=== PATIENT | female | born 1955 | race Caucasian/White ===

== ENCOUNTER 2017-10-04 22:43 | Inpatient (IN) | payer MEDICARE, BC ==
[~2017-10-04] VITALS: Ht 172.7 cm; Wt 52.2 kg
[~2017-10-04 22:43] MED LIST: FENT-93 TD; GABA-330 PO; HYDR2TAB28 PO; METO-410 PO; PROM25SU46 RC; VENL-190 PO; ZOF4T PO
[2017-10-05 00:30] VITALS: BP 120/76
[2017-10-05 07:39] VITALS: BP 153/89
[2017-10-05] MEDS ORDERED: magnesium hydroxide 30ml (MOM) UD suspension PO PRN (09:05)
[2017-10-05] MEDS ORDERED: acetaminophen 325mg tablet PO PRN ×2 (09:05)
[2017-10-05] MEDS ORDERED: mag hydrox/Alum hydrox/simeth 30ml oral suspension PO PRN (09:05)
[2017-10-05] MEDS ORDERED: ESCI10TA54 PO (12:38)
[2017-10-05] MEDS ORDERED: BACL10TA PO (12:39)
[2017-10-05] MEDS ORDERED: ESZO2TAB30 PO (12:42)
[2017-10-05] MEDS ORDERED: FERR225T PO (12:44)
[2017-10-05] MEDS ORDERED: FURO-150 PO (12:46)
[2017-10-05] MEDS ORDERED: NORT25CA PO (13:09)
[2017-10-05] MEDS ORDERED: TRAM50TA2 PO (13:09)
[2017-10-05] MEDS ORDERED: ALBU8.5H8 IH (13:09)
[2017-10-05] MEDS ORDERED: LORA0.5T PO (13:09)
[2017-10-05] MEDS ORDERED: KEN0.1O TP (13:09)
[2017-10-05] MEDS ORDERED: GABA-534 PO (13:09)
[2017-10-05] MEDS ORDERED: albuterol 2.5 MG/3 ML nebule NEB PRN (13:20)
[2017-10-05] MEDS ORDERED: baclofen 10mg tablet PO PRN (13:20)
[2017-10-05] MEDS ORDERED: LORazepam 0.5 MG tablet PO PRN (13:25)
[2017-10-05] MEDS: nicotine 14mg patch - 24hr TD SCH (15:37)
[2017-10-05] MEDS: HYDROmorphone 2mg tablet PO PRN ×2 (15:43→21:11)
[2017-10-05] MEDS ORDERED: traMADol 50MG tablet PO SCH (17:00)
[2017-10-05] MEDS: gabapentin 400mg capsule PO SCH ×2 (17:56→21:07)
[2017-10-05] MEDS: triamcinolone acet 0.1% cream 15gm TP SCH (20:00)
[2017-10-05 20:26] VITALS: BP 157/83
[2017-10-05] MEDS ORDERED: nortriptyline 25mg capsule PO SCH (21:00)
[2017-10-05] MEDS: nortriptyline 25mg capsule PO SCH (21:07)
[2017-10-06] MEDS: HYDROmorphone 2mg tablet PO PRN ×2 (04:25→14:25)
[2017-10-06 07:53] VITALS: BP 169/99
[2017-10-06] MEDS ORDERED: ferrous gluconate 324mg tablet PO SCH (08:00)
[2017-10-06] MEDS ORDERED: ESCITALOPRAM 10MG PO SCH (08:00)
[2017-10-06] MEDS: furosemide 20MG tablet PO SCH (08:07)
[2017-10-06] MEDS: gabapentin 400mg capsule PO SCH ×4 (08:07→20:18)
[2017-10-06] MEDS: fluticasone nasal spray 16GM bottle NS SCH (08:08)
[2017-10-06] MEDS: nicotine 14mg patch - 24hr TD SCH (08:08)
[2017-10-06] MEDS: triamcinolone acet 0.1% cream 15gm TP SCH ×2 (14:25→20:18)
[2017-10-06] MEDS ORDERED: citalopram 20mg tablet PO ONE (14:25)
[2017-10-06] MEDS: traMADol 50MG tablet PO SCH ×2 (15:51→20:19)
[2017-10-06 19:00] VITALS: BP 185/111
[2017-10-06 19:30] VITALS: BP 170/109
[2017-10-06] MEDS: nortriptyline 25mg capsule PO SCH (20:18)
[2017-10-06 21:00] VITALS: BP 176/96
[2017-10-07] MEDS: HYDROmorphone 2mg tablet PO PRN (02:21)
[2017-10-07 07:56] VITALS: BP 166/102
[2017-10-07] MEDS: ferrous gluconate 324mg tablet PO SCH ×2 (08:00→08:03)
[2017-10-07] MEDS ORDERED: citalopram 20mg tablet PO SCH (08:00)
[2017-10-07] MEDS: nicotine 14mg patch - 24hr TD SCH (08:02)
[2017-10-07] MEDS: fluticasone nasal spray 16GM bottle NS SCH (08:03)
[2017-10-07] MEDS: traMADol 50MG tablet PO SCH ×2 (08:03→13:14)
[2017-10-07] MEDS: furosemide 20MG tablet PO SCH (08:03)
[2017-10-07] MEDS: gabapentin 400mg capsule PO SCH ×2 (08:03→13:13)
[2017-10-07] MEDS: triamcinolone acet 0.1% cream 15gm TP SCH (11:00)
[2017-10-07] MEDS ORDERED: HYDR2TAB7 PO (11:49)
[2017-10-07] MEDS ORDERED: NORT25CA PO (11:49)
[2017-10-07] MEDS ORDERED: CITA20TA11 PO (11:49)
[2017-10-07] MEDS ORDERED: FLUT16SP18 NS (11:49)
[2017-10-07] MEDS ORDERED: NICO-631 TD (11:49)
== END 2017-10-07 13:45 | disposition home or self-care (01) | DRG 885 ==
LOC: ADULT MH 22:43
PROVIDERS: ADMIT Psychiatry & Neurology Psychiatry; ATTEND Psychiatry & Neurology Psychiatry
DX: F33.1 Major depressive disorder, recurrent, moderate (principal); L89.150 Pressure ulcer of sacral region, unstageable; F11.20 Opioid dependence, uncomplicated; G62.9 Polyneuropathy, unspecified; F29 Unspecified psychosis not due to a substance or known physiological condition; M54.9 Dorsalgia, unspecified; F41.9 Anxiety disorder, unspecified; F12.90 Cannabis use, unspecified, uncomplicated; G47.09 Other insomnia; G89.4 Chronic pain syndrome; J00 Acute nasopharyngitis [common cold]; J44.9 Chronic obstructive pulmonary disease, unspecified; T40.60 Poisoning by, adverse effect of and underdosing of unspecified narcotics; F17.210 Nicotine dependence, cigarettes, uncomplicated; Z90.710 Acquired absence of both cervix and uterus; Z90.49 Acquired absence of other specified parts of digestive tract; Z98.84 Bariatric surgery status; Z88.5 Allergy status to narcotic agent; Z79.899 Other long term (current) drug therapy; Z91.5 Personal history of self-harm; Z81.1 Family history of alcohol abuse and dependence
CPT/HCPCS: 87070; 99406; A6212; A6213

== ENCOUNTER 2018-11-24 12:13 | Inpatient (IN) | payer MEDICARE, BC ==
[~2018-11-24] VITALS: Ht 172.7 cm; Wt 63.6 kg
[~2018-11-24 12:13] MED LIST changes: +ALBU8.5H8 IH; +BACL10TA PO; +CITA-278 PO; -FENT-93 TD; +FERR225T PO; +FLUT16SP18 NS; +FURO-150 PO; -GABA-330 PO; +GABA-534 PO; -HYDR2TAB28 PO; +HYDR2TAB7 PO; +KEN0.1O TP; -METO-410 PO; +NICO-631 TD; +NORT25CA PO; -PROM25SU46 RC; -VENL-190 PO; -ZOF4T PO
[2018-11-24 13:15] LABS: BASOPHILS % (AUTO) 0.2 % (0-1); EOSINOPHILS % (AUTO) 0 % (0-6); HEMATOCRIT 46.8 % (35.0-45.0); HEMOGLOBIN 15.3 g/dl (12.0-16.0); LYMPHOCYTES # (AUTO) 0.9 X10'3 (1.1-4.8); LYMPHOCYTES % (AUTO) 4.6 % (21-51); MEAN CORPUSCULAR HEMOGLOBIN 35.1 PG (27.0-31.0); MEAN CORPUSCULAR HGB CONC 32.8 g/dL (33.0-36.5); MEAN CORPUSCULAR VOLUME 107.1 FL (78-98); MEAN PLATELET VOLUME 8.4 FL (7.4-10.4); MONOCYTES # (AUTO) 0.5 X10'3 (0-0.9); MONOCYTES % (AUTO) 2.4 % (2-12); NEUTROPHILS % (AUTO) 92.8 % (42-75); PLATELET COUNT 312 X10'3 (140-440); RED BLOOD COUNT 4.37 X10'6 (4.20-5.60); RED CELL DISTRIBUTION WIDTH 15.6 % (11.5-14.5); WHITE BLOOD COUNT 19.4 X10'3 (4.5-11.0)
[2018-11-24 13:17] LABS: ALANINE AMINOTRANSFERASE 69 U/L (12-78); ALBUMIN 2.6 G/DL (3.4-5.0); ALBUMIN/GLOBULIN RATIO 0.7 (1.1-1.5); ALKALINE PHOSPHATASE 331 IU/L (46-116); ANION GAP 9 (8-16); ASPARTATE AMINO TRANSFERASE 43 U/L (10-37); BILIRUBIN,TOTAL 1.4 MG/DL (0.1-1.0); BLOOD UREA NITROGEN 22 MG/DL (7-18); BUN/CREATININE RATIO 25.9 (6.6-38.0); CALCIUM 7.9 MG/DL (8.5-10.1); CHLORIDE 93 MMOL/L (99-107); CREATININE 0.85 MG/DL (0.40-0.90); GLUCOSE 129 MG/DL (70-104); INR 1.2 INR; PARTIAL THROMBOPLASTIN TIME 30 SECONDS (22-32); PROTHROMBIN TIME 11.8 SECONDS (9.0-12.0); SODIUM 135 MMOL/L (135-145); TOTAL CARBON DIOXIDE 32.8 MMOL/L (24-32); TOTAL PROTEIN 6.6 G/DL (6.4-8.2); eGFR 68 ML/MIN
[2018-11-24 13:21] LABS: POTASSIUM 2.1 MMOL/L (3.5-5.1)
[2018-11-24 13:30] LABS: TOTAL CELLS COUNTED 100
[2018-11-24 13:31] LABS: ANISOCYTOSIS 1+; PLATELET ESTIMATE NORMAL; POIKILOCYTOSIS 1+; POLYCHROMASIA 1+; TARGET CELLS 1+
[2018-11-24] MEDS ORDERED: potassium Cl 20 mEq SR tablet PO ONE (14:05)
[2018-11-24] MEDS: potassium 10mEq/100ml NS w/LIDOcaine (10mg/bag) IV SCH ×2 (14:13→17:19)
[2018-11-24] MEDS: magnesium 2GM in 50ml NS 50 ML IV SCH ×2 (14:17→17:21)
[2018-11-24 14:30] LABS: D-DIMER 4.02 MG/L FEU (0-0.50)
[2018-11-24 14:32] LABS: MAGNESIUM 1.9 MG/DL (1.5-2.4)
--- NOTE | 2018-11-24 14:56 | NUR ---
PT HAS SOME LT SIDED FACIAL DROOP, DR PLAZA NOTIFIED. LEVEL 1 STROKE ALERT CALLED.
--- NOTE | 2018-11-24 15:12 | NUR ---
Call placed to [facility] for neuro consult
--- NOTE | 2018-11-24 15:16 | NUR ---
PT RETURNED FROM CT, STROKE NURSE AT BEDSIDE,.
[2018-11-24] MEDS ORDERED: levoFLOXACIN-Levaquin 750MG/D5 150 ML IV STA (15:28)
[2018-11-24] MEDS ORDERED: iohexol 350MG/ML 100ml bottle IV ONE (15:54)
[2018-11-24] MEDS ORDERED: enoxaparin 100mg/ml syringe SUBCUT ONE (16:50)
[2018-11-24] MEDS ORDERED: enoxaparin 60mg/0.6ml syringe SUBCUT ONE (16:55)
[2018-11-24] MEDS ORDERED: potassium 10mEq/100ml NS w/LIDOcaine (10mg/bag) IV SCH (17:20)
[2018-11-24] MEDS ORDERED: magnesium 4gm in 100ml NS 100 ML IV PRN (18:10)
[2018-11-24] MEDS ORDERED: magnesium hydroxide 30ml (MOM) UD suspension PO PRN (18:10)
[2018-11-24] MEDS ORDERED: ipratropium/albuterol 3ml nebule NEB PRN (18:10)
[2018-11-24] MEDS ORDERED: ondansetron/PF 4mg/2ml inj IV PRN (18:10)
[2018-11-24] MEDS ORDERED: acetaminophen 325mg tablet PO PRN (18:10)
[2018-11-24] MEDS ORDERED: potassium Cl 20 mEq SR tablet PO PRN (18:10)
[2018-11-24] MEDS ORDERED: mag hydrox/Alum hydrox/simeth 30ml oral suspension PO PRN (18:10)
[2018-11-24] MEDS ORDERED: magnesium Cl slow-release 64mg tablet PO PRN (18:10)
[2018-11-24] MEDS ORDERED: magnesium 2GM in 50ml NS 50 ML IV PRN (18:10)
[2018-11-24] MEDS ORDERED: potassium Cl 40MEQ/NS 500ml 500 ML IV PRN ×2 (18:10)
[2018-11-24] MEDS: enoxaparin 60mg/0.6ml syringe SUBCUT SCH (19:57)
--- NOTE | 2018-11-24 21:40 | NUR ---
Received report from Colin TEJADA. Patient received via [place]. Patient helped ambulate to bed with 2 person assistance. Vital signs taken. Bed in locked and low position, call light placed within reach.
[2018-11-24 21:43] LABS: CLARITY,URINE CLEAR (Clear); COLOR,URINE YELLOW (Yellow); GLUCOSE, URINE NEGATIVE (Neg); KETONES,URINE TRACE mg/dl (Neg); LEUKOCYTE ESTERASE ,URINE NEGATIVE (Neg); NITRITES, URINE NEGATIVE (Neg); OCCULT BLOOD,URINE NEGATIVE (Neg); PROTEIN,URINE NEGATIVE (Neg); UA COLLECTION TYPE STRAIGHT CATH
[2018-11-24 21:45] VITALS: BP 146/83
[2018-11-25] MEDS ORDERED: HYDROmorphone 2mg tablet PO ONE (05:30)
[2018-11-25 06:00] VITALS: BP 135/75
--- NOTE | 2018-11-25 06:35 | NUR ---
Problems reprioritized. Patient report given, questions answered & plan of care reviewed with Yane TEJADA.
--- NOTE | 2018-11-25 06:40 | NUR ---
Patient in room ORTHO 4024. I have received report from [facility] and had the opportunity to ask questions and assume patient care.
[2018-11-25 06:58] LABS: BASOPHILS % (AUTO) 0 % (0-1); EOSINOPHILS # (AUTO) 0.2 X10'3 (0-0.9); EOSINOPHILS % (AUTO) 1.3 % (0-6); HEMATOCRIT 36.1 % (35.0-45.0); HEMOGLOBIN 11.9 g/dl (12.0-16.0); LYMPHOCYTES # (AUTO) 0.9 X10'3 (1.1-4.8); LYMPHOCYTES % (AUTO) 6.4 % (21-51); MEAN CORPUSCULAR HEMOGLOBIN 35.6 PG (27.0-31.0); MEAN CORPUSCULAR VOLUME 107.8 FL (78-98); MEAN PLATELET VOLUME 8.2 FL (7.4-10.4); MONOCYTES # (AUTO) 0.6 X10'3 (0-0.9); NEUTROPHILS # (AUTO) 12.7 X10'3 (1.8-7.7); NEUTROPHILS % (AUTO) 88.3 % (42-75); PLATELET COUNT 264 X10'3 (140-440); RED BLOOD COUNT 3.35 X10'6 (4.20-5.60); RED CELL DISTRIBUTION WIDTH 15.1 % (11.5-14.5); WHITE BLOOD COUNT 14.4 X10'3 (4.5-11.0)
[2018-11-25 07:39] LABS: ALANINE AMINOTRANSFERASE 48 U/L (12-78); ALBUMIN 1.7 G/DL (3.4-5.0); ALBUMIN/GLOBULIN RATIO 0.6 (1.1-1.5); ALKALINE PHOSPHATASE 228 IU/L (46-116); ANION GAP 7 (8-16); ASPARTATE AMINO TRANSFERASE 28 U/L (10-37); BILIRUBIN,TOTAL 0.9 MG/DL (0.1-1.0); BLOOD UREA NITROGEN 15 MG/DL (7-18); BUN/CREATININE RATIO 26.3 (6.6-38.0); CALCIUM 7.1 MG/DL (8.5-10.1); CHLORIDE 95 MMOL/L (99-107); CREATININE 0.57 MG/DL (0.40-0.90); GLUCOSE 76 MG/DL (70-104); HDL CHOLESTEROL 18 MG/DL (35-60); LDL CHOLESTEROL 16 MG/DL (50-100); SODIUM 134 MMOL/L (135-145); TOTAL CARBON DIOXIDE 32.4 MMOL/L (24-32); TOTAL PROTEIN 4.6 G/DL (6.4-8.2); TRIGLYCERIDES 38 MG/DL (20-135); eGFR > 90 ML/MIN
[2018-11-25 07:41] LABS: CHOLESTEROL < 50 MG/DL (0-200)
[2018-11-25 07:43] LABS: POTASSIUM 2.2 MMOL/L (3.5-5.1)
[2018-11-25] MEDS: K and/or MAG REPLACEMENT MC SCH (08:00)
--- NOTE | 2018-11-25 08:01 | NUR ---
Received critical lab for pt. Potassium of 2.2. Kelly LYLES. PAGER ID: [phone] MESSAGE: Good morning Yane Powell on ortho, critical potassium of 2.2 on pt in room 4024A, Ms. Thomas. Replacing per protocol. Thank you
[2018-11-25] MEDS: potassium Cl 20 mEq SR tablet PO PRN ×3 (09:14→19:15)
[2018-11-25] MEDS: enoxaparin 60mg/0.6ml syringe SUBCUT SCH ×2 (09:15→19:16)
[2018-11-25 10:00] VITALS: BP 122/74
[2018-11-25] MEDS: levoFLOXACIN 750MG TABLET PO SCH (11:57)
[2018-11-25] MEDS: CITALOpram 10mg tablet PO SCH (11:58)
[2018-11-25] MEDS: baclofen 10mg tablet PO PRN ×2 (13:48→22:00)
[2018-11-25] MEDS: nicotine 14mg patch - 24hr TD SCH (13:49)
--- NOTE | 2018-11-25 15:25 | NUR ---
Pt triggered for low sherry of 12. Pt has documented pressure ulcer on left buttocks and posterior coccyx. Met pt at bedside gave verbal and written high protein education. Pt is w/ severe edema, BLE 4+, visible muscle and fat wasting. Pt states she is normally 125-130# and is currently 140#. Per note MD is concerned that the patient may have a metastatic process due to her cachectic appearance.Due to cachectic appearance and edema pt meets criteria for malnutrition. Pt is on clear liquid diet and states previously w/ loss of appetite however she is hungry, currently no documented PO intake. Pt is agreeable to ONS if needed. LBM 11/23. Will continue to follow. Rec: 1. Advance diet as tolerated 2. Monitor for ONS 3. Wt per rx Addendum: 11/25/18 at [address] Amended: Links added. Addendum: 11/25/18 at [address] I have reviewed and agree with note by [employer]. Alexia Rodriguez, DARIUSZ
[2018-11-25 18:00] VITALS: BP 115/63
--- NOTE | 2018-11-25 18:19 | NUR ---
Problems reprioritized. Patient report given, questions answered & plan of care reviewed with Eulalia Anne
[2018-11-25] MEDS: gabapentin 400mg capsule PO SCH (19:15)
[2018-11-25 22:00] VITALS: BP 115/69
[2018-11-26] MEDS: gabapentin 400mg capsule PO SCH ×4 (02:31→19:15)
[2018-11-26 06:00] VITALS: BP 119/78
--- NOTE | 2018-11-26 06:27 | NUR ---
Problems reprioritized. Patient report given, questions answered & plan of care reviewed with TERRELL Last.
--- NOTE | 2018-11-26 06:33 | NUR ---
RECEIVED REPORT FROM LIOR Johnson
[2018-11-26 06:40] LABS: BASOPHILS % (AUTO) 0 % (0-1); EOSINOPHILS # (AUTO) 0.1 X10'3 (0-0.9); EOSINOPHILS % (AUTO) 1.2 % (0-6); HEMATOCRIT 38.5 % (35.0-45.0); HEMOGLOBIN 12.7 g/dl (12.0-16.0); LYMPHOCYTES # (AUTO) 1.2 X10'3 (1.1-4.8); MEAN CORPUSCULAR HEMOGLOBIN 35.3 PG (27.0-31.0); MEAN CORPUSCULAR HGB CONC 32.9 g/dL (33.0-36.5); MEAN CORPUSCULAR VOLUME 107.3 FL (78-98); MEAN PLATELET VOLUME 8.4 FL (7.4-10.4); MONOCYTES # (AUTO) 0.4 X10'3 (0-0.9); MONOCYTES % (AUTO) 3.2 % (2-12); NEUTROPHILS # (AUTO) 10.3 X10'3 (1.8-7.7); NEUTROPHILS % (AUTO) 85.6 % (42-75); PLATELET COUNT 314 X10'3 (140-440); RED BLOOD COUNT 3.58 X10'6 (4.20-5.60); RED CELL DISTRIBUTION WIDTH 15.6 % (11.5-14.5)
[2018-11-26 06:47] LABS: ALBUMIN 1.8 G/DL (3.4-5.0); ANION GAP 9 (8-16); BLOOD UREA NITROGEN 12 MG/DL (7-18); BUN/CREATININE RATIO 21.4 (6.6-38.0); CALCIUM 7.2 MG/DL (8.5-10.1); CHLORIDE 96 MMOL/L (99-107); CREATININE 0.56 MG/DL (0.40-0.90); GLUCOSE 61 MG/DL (70-104); POTASSIUM 3.6 MMOL/L (3.5-5.1); SODIUM 132 MMOL/L (135-145); TOTAL CARBON DIOXIDE 27.4 MMOL/L (24-32); eGFR > 90 ML/MIN
[2018-11-26] MEDS: baclofen 10mg tablet PO PRN ×2 (07:38→17:19)
[2018-11-26] MEDS: CITALOpram 10mg tablet PO SCH (07:38)
[2018-11-26] MEDS: enoxaparin 60mg/0.6ml syringe SUBCUT SCH ×2 (07:39→19:16)
[2018-11-26] MEDS: nicotine 14mg patch - 24hr TD SCH (07:39)
[2018-11-26] MEDS: K and/or MAG REPLACEMENT MC SCH (08:00)
[2018-11-26 10:00] VITALS: BP 143/80
[2018-11-26] MEDS ORDERED: HYDROmorphone 2mg tablet PO PRN ×2 (10:15→19:00)
[2018-11-26] MEDS: levoFLOXACIN 750MG TABLET PO SCH (10:39)
[2018-11-26] MEDS: HYDROmorphone 2mg tablet PO SCH ×2 (13:36→19:16)
[2018-11-26] MEDS ORDERED: baclofen 10mg tablet PO PRN (17:00)
[2018-11-26] MEDS ORDERED: gabapentin 400mg capsule PO SCH (17:00)
[2018-11-26 18:00] VITALS: BP 152/100
--- NOTE | 2018-11-26 18:12 | NUR ---
REPORT GIVEN TO KIMBERLY TEJADA
[2018-11-26] MEDS ORDERED: albuterol 2.5 MG/3 ML nebule NEB PRN (18:45)
[2018-11-26] MEDS: nortriptyline 25mg capsule PO SCH (20:12)
[2018-11-26] MEDS: triamcinolone acet 0.1% cream 15gm TP SCH (20:12)
[2018-11-26 22:00] VITALS: BP 134/82
[2018-11-27] MEDS: gabapentin 400mg capsule PO SCH ×4 (01:38→19:33)
[2018-11-27 05:42] LABS: BASOPHILS % (AUTO) 0.3 % (0-1); EOSINOPHILS % (AUTO) 0 % (0-6); HEMOGLOBIN 12.5 g/dl (12.0-16.0); LYMPHOCYTES # (AUTO) 1.9 X10'3 (1.1-4.8); LYMPHOCYTES % (AUTO) 17.8 % (21-51); MEAN CORPUSCULAR HEMOGLOBIN 35.4 PG (27.0-31.0); MEAN CORPUSCULAR HGB CONC 32.8 g/dL (33.0-36.5); MEAN CORPUSCULAR VOLUME 107.8 FL (78-98); MEAN PLATELET VOLUME 8.4 FL (7.4-10.4); MONOCYTES # (AUTO) 0.4 X10'3 (0-0.9); MONOCYTES % (AUTO) 3.7 % (2-12); NEUTROPHILS # (AUTO) 8.2 X10'3 (1.8-7.7); NEUTROPHILS % (AUTO) 78.2 % (42-75); PLATELET COUNT 309 X10'3 (140-440); RED BLOOD COUNT 3.53 X10'6 (4.20-5.60); RED CELL DISTRIBUTION WIDTH 15.6 % (11.5-14.5); WHITE BLOOD COUNT 10.5 X10'3 (4.5-11.0)
[2018-11-27 06:00] LABS: ALBUMIN 1.8 G/DL (3.4-5.0); ANION GAP 5 (8-16); BLOOD UREA NITROGEN 9 MG/DL (7-18); BUN/CREATININE RATIO 16.1 (6.6-38.0); CALCIUM 7.3 MG/DL (8.5-10.1); CHLORIDE 98 MMOL/L (99-107); CREATININE 0.56 MG/DL (0.40-0.90); GLUCOSE 73 MG/DL (70-104); POTASSIUM 3.4 MMOL/L (3.5-5.1); SODIUM 132 MMOL/L (135-145); TOTAL CARBON DIOXIDE 29.4 MMOL/L (24-32); eGFR > 90 ML/MIN
--- NOTE | 2018-11-27 06:26 | NUR ---
REPORT GIVEN TO TERRELL WATTS.
--- NOTE | 2018-11-27 06:38 | NUR ---
RECEIVED REPORT FROM KIMBERLY TEJADA
[2018-11-27 06:49] VITALS: BP 128/77
[2018-11-27] MEDS: furosemide 20MG tablet PO SCH (07:48)
[2018-11-27] MEDS: lactobacillus rhamnosus 10,000 MMU CELLS/CAPSULE PO SCH ×2 (07:48→19:33)
[2018-11-27] MEDS: HYDROmorphone 2mg tablet PO SCH ×3 (07:49→19:33)
[2018-11-27] MEDS: CITALOpram 10mg tablet PO SCH (07:49)
[2018-11-27] MEDS: nicotine 14mg patch - 24hr TD SCH (07:49)
[2018-11-27] MEDS: enoxaparin 60mg/0.6ml syringe SUBCUT SCH ×2 (07:50→19:34)
[2018-11-27] MEDS: triamcinolone acet 0.1% cream 15gm TP SCH ×2 (07:54→19:34)
[2018-11-27] MEDS: fluticasone nasal spray 16GM bottle NS SCH (07:54)
[2018-11-27] MEDS: ferrous gluconate 324mg tablet PO SCH (07:55)
[2018-11-27] MEDS ORDERED: nicotine 14mg patch - 24hr TD SCH (08:00)
[2018-11-27] MEDS: K and/or MAG REPLACEMENT MC SCH (08:00)
[2018-11-27] MEDS ORDERED: citalopram 20mg tablet PO SCH (08:00)
[2018-11-27 10:00] VITALS: BP 134/82
[2018-11-27] MEDS: levoFLOXACIN 750MG TABLET PO SCH (10:13)
[2018-11-27] MEDS: baclofen 10mg tablet PO PRN (10:13)
[2018-11-27 17:00] VITALS: BP 124/82
[2018-11-27] MEDS ORDERED: HYDROmorphone 2mg tablet PO SCH (19:00)
[2018-11-27] MEDS ORDERED: magnesium Cl slow-release 64mg tablet PO PRN (19:35)
[2018-11-27] MEDS ORDERED: magnesium 4gm in 100ml NS 100 ML IV PRN (19:35)
[2018-11-27] MEDS ORDERED: potassium Cl 20 mEq SR tablet PO PRN ×2 (19:35)
[2018-11-27] MEDS ORDERED: potassium Cl 40MEQ/NS 500ml 500 ML IV PRN ×2 (19:35)
[2018-11-27] MEDS: nortriptyline 25mg capsule PO SCH (20:37)
--- NOTE | 2018-11-27 20:46 | NUR ---
REPORT REC'D FROM TERRELL WATTS.
[2018-11-27 22:00] VITALS: BP 125/78
[2018-11-28] MEDS: gabapentin 400mg capsule PO SCH ×2 (02:06→07:43)
[2018-11-28 06:31] LABS: BASOPHILS % (AUTO) 0.3 % (0-1); EOSINOPHILS # (AUTO) 0.1 X10'3 (0-0.9); EOSINOPHILS % (AUTO) 1.4 % (0-6); HEMATOCRIT 39.1 % (35.0-45.0); LYMPHOCYTES # (AUTO) 1.6 X10'3 (1.1-4.8); LYMPHOCYTES % (AUTO) 21.5 % (21-51); MEAN CORPUSCULAR HEMOGLOBIN 35.9 PG (27.0-31.0); MEAN CORPUSCULAR HGB CONC 33.2 g/dL (33.0-36.5); MEAN CORPUSCULAR VOLUME 108.1 FL (78-98); MEAN PLATELET VOLUME 8.1 FL (7.4-10.4); MONOCYTES # (AUTO) 0.4 X10'3 (0-0.9); MONOCYTES % (AUTO) 4.6 % (2-12); NEUTROPHILS # (AUTO) 5.5 X10'3 (1.8-7.7); NEUTROPHILS % (AUTO) 72.2 % (42-75); PLATELET COUNT 296 X10'3 (140-440); RED BLOOD COUNT 3.62 X10'6 (4.20-5.60); RED CELL DISTRIBUTION WIDTH 15.9 % (11.5-14.5); WHITE BLOOD COUNT 7.7 X10'3 (4.5-11.0)
--- NOTE | 2018-11-28 06:39 | NUR ---
REPORT GIVEN TO TERRELL WATTS.
[2018-11-28 06:44] LABS: ALBUMIN 1.7 G/DL (3.4-5.0); ANION GAP 6 (8-16); BLOOD UREA NITROGEN 8 MG/DL (7-18); BUN/CREATININE RATIO 11.8 (6.6-38.0); CALCIUM 7.4 MG/DL (8.5-10.1); CHLORIDE 99 MMOL/L (99-107); CREATININE 0.68 MG/DL (0.40-0.90); GLUCOSE 74 MG/DL (70-104); MAGNESIUM 1.8 MG/DL (1.5-2.4); POTASSIUM 3.9 MMOL/L (3.5-5.1); SODIUM 135 MMOL/L (135-145); TOTAL CARBON DIOXIDE 30.4 MMOL/L (24-32); eGFR 88 ML/MIN
--- NOTE | 2018-11-28 06:45 | NUR ---
RECEIVED REPORT FROM KIMBERLY TEJADA
[2018-11-28 06:56] VITALS: BP 116/79
[2018-11-28] MEDS: fluticasone nasal spray 16GM bottle NS SCH (07:36)
[2018-11-28] MEDS: lactobacillus rhamnosus 10,000 MMU CELLS/CAPSULE PO SCH (07:42)
[2018-11-28] MEDS: ferrous gluconate 324mg tablet PO SCH (07:42)
[2018-11-28] MEDS: HYDROmorphone 2mg tablet PO SCH ×2 (07:43→12:27)
[2018-11-28] MEDS: CITALOpram 10mg tablet PO SCH (07:43)
[2018-11-28] MEDS: nicotine 14mg patch - 24hr TD SCH (07:43)
[2018-11-28] MEDS: furosemide 20MG tablet PO SCH (07:43)
[2018-11-28] MEDS: enoxaparin 60mg/0.6ml syringe SUBCUT SCH (07:44)
[2018-11-28] MEDS: triamcinolone acet 0.1% cream 15gm TP SCH (07:46)
[2018-11-28] MEDS: K and/or MAG REPLACEMENT MC SCH (08:00)
[2018-11-28] MEDS: lactose-reduced food (Ensure High Protein) 237ml bottle PO SCH ×2 (08:56→13:42)
[2018-11-28 11:28] VITALS: BP 117/77
[2018-11-28] MEDS: levoFLOXACIN 750MG TABLET PO SCH (12:27)
--- NOTE | 2018-11-28 12:29 | NUR ---
reassessment: Pt PO 50-75% heart healthy meals w/ ensure high protein TID meeting needs. Pt seen by RD and requests larger portions w/ meals; agrees to double meats TIDWM. DARIUSZ d/w dietary. Pt reports knowing of only one kind of gastric bypass winterg DARIUSZ visit and reports they "shrunk her stomach" ~20 years ago. Possibly vertical sleeve instead of lia-en-y given pt tolerating concentrated juices and requesting additional food. MCV 108.1; pt reports stopped taking B12 and just takes OTC MVM at home. RD educated pt on taking B12 in addition to MVM for additional needs; pt was agreeable. May need injections in order to meet needs depending on extent of bypass. DARIUSZ d/w RN for routine bowel care and B12/MVM per MD approval given LBM 11/23 on Fergon and MCV quite elevated. Pt reports no discomfort and is aware of no BM past few days. Will continue to monitor. Rec: 1. continue heart healthy diet per MD; double meats TIDWM 2. ensure high protein TIDWM 3. B12/MVM given gastric bypass hx w/ MCV elevated 108.1 per MD; may need B12 injection depending on hx 4. Routine bowel care on Fergon w/ LBM 11/23 5. weekly wts Addendum: 11/28/18 at [address] Amended: Links added.
--- NOTE | 2018-11-28 16:24 | NUR ---
Patient was discharged Iv and tele was removed. Patient was alert and oriented at time of discharge. Patient left via [facility]
== END 2018-11-28 16:15 | DRG 175 ==
LOC: ER 12:14 → ED HOLD 19:22 → ORTHO 4S 21:35
PROVIDERS: ADMIT Family Medicine; ATTEND Family Medicine
PROC: B3201ZZ Computerized Tomography (CT Scan) of Thoracic Aorta using Low Osmolar Contrast (ICD-10-PCS; principal; 2018-11-24)
DX: I26.99 Other pulmonary embolism without acute cor pulmonale (principal); R65.11 Systemic inflammatory response syndrome (SIRS) of non-infectious origin with acute organ dysfunction; E43 Unspecified severe protein-calorie malnutrition; J18.1 Lobar pneumonia, unspecified organism; I82.403 Acute embolism and thrombosis of unspecified deep veins of lower extremity, bilateral; J44.0 Chronic obstructive pulmonary disease with (acute) lower respiratory infection; E87.6 Hypokalemia; F32.9 Major depressive disorder, single episode, unspecified; M54.2 Cervicalgia; L89.152 Pressure ulcer of sacral region, stage 2; M54.9 Dorsalgia, unspecified; R25.1 Tremor, unspecified; G47.00 Insomnia, unspecified; G62.9 Polyneuropathy, unspecified; G89.4 Chronic pain syndrome; M41.9 Scoliosis, unspecified; F12.90 Cannabis use, unspecified, uncomplicated; F17.210 Nicotine dependence, cigarettes, uncomplicated; Z74.01 Bed confinement status; Z90.710 Acquired absence of both cervix and uterus; Z90.49 Acquired absence of other specified parts of digestive tract; Z98.84 Bariatric surgery status; Z88.5 Allergy status to narcotic agent; Z79.899 Other long term (current) drug therapy; Z79.01 Long term (current) use of anticoagulants; Z81.1 Family history of alcohol abuse and dependence; Z68.21 Body mass index [BMI] 21.0-21.9, adult; Z71.6 Tobacco abuse counseling
CPT/HCPCS: 36415; 71045; 71275; 74176; 80048; 80053; 80061; 81003; 83605; 83735; 83880; 84132; 84145; 84484; 85025; 85379; 85610; 85730; 87040; 87070; 93306; 93970; 94760; 96361; 96365; 96372; 97110; 97116; 97162; 97530; 99285; G0378; J1650; J1956; J3475; J3480; Q9967

== ENCOUNTER 2019-10-10 14:41 | Emergency (ER) | payer MEDICARE, BC ==
[~2019-10-10] VITALS: Ht 172.7 cm; Wt 51.4 kg
[~2019-10-10 14:41] MED LIST changes: -CITA-278 PO; +CITA20TA28 PO; -HYDR2TAB7 PO
[2019-10-10 15:12] VITALS: BP 111/67
[2019-10-10 15:58] LABS: PARTIAL THROMBOPLASTIN TIME 28 SECONDS (22-32)
[2019-10-10 16:00] LABS: ALANINE AMINOTRANSFERASE 26 U/L (12-78); ALBUMIN 3.2 G/DL (3.4-5.0); ALKALINE PHOSPHATASE 130 IU/L (46-116); ANION GAP 7 (8-16); ASPARTATE AMINO TRANSFERASE 17 U/L (10-37); BILIRUBIN,TOTAL 0.4 MG/DL (0.1-1.0); BLOOD UREA NITROGEN 18 MG/DL (7-18); BUN/CREATININE RATIO 22.8 (6.6-38.0); CALCIUM 7.9 MG/DL (8.5-10.1); CHLORIDE 107 MMOL/L (99-107); CREATININE 0.79 MG/DL (0.40-0.90); GLUCOSE 96 MG/DL (70-104); POTASSIUM 4.4 MMOL/L (3.5-5.1); SODIUM 139 MMOL/L (135-145); TOTAL CARBON DIOXIDE 25.5 MMOL/L (24-32); TOTAL PROTEIN 6.5 G/DL (6.4-8.2); eGFR 74 ML/MIN
[2019-10-10] MEDS ORDERED: CEPH250T PO (16:09)
[2019-10-10 16:49] LABS: HEMOGLOBIN 7.8 g/dl (12.0-16.0); WHITE BLOOD COUNT 3.5 X10'3 (4.5-11.0)
[2019-10-10 17:00] LABS: HEMATOCRIT 23.9 % (35.0-45.0); MEAN CORPUSCULAR HEMOGLOBIN 43.5 PG (27.0-31.0); MEAN CORPUSCULAR HGB CONC 32.8 g/dL (33.0-36.5); MEAN CORPUSCULAR VOLUME 132.8 FL (78-98); MEAN PLATELET VOLUME 8.1 FL (7.4-10.4); PLATELET COUNT 342 X10'3 (140-440); RED CELL DISTRIBUTION WIDTH 23.9 % (11.5-14.5)
[2019-10-10 17:07] LABS: LARGE PLATELETS MODERATE; NUCLEATED RED BLOOD CELLS 30 /100WBC (0-0); TOTAL CELLS COUNTED 100
[2019-10-10 17:08] LABS: ANISOCYTOSIS 3+; MICROCYTOSIS 1+; PLATELET ESTIMATE NORMAL; POLYCHROMASIA 2+; SCHISTOCYTES 1+
[2019-10-10 17:09] LABS: ACANTHOCYTES FEW
== END 2019-10-10 17:06 | disposition home or self-care (01) ==
LOC: ER 14:42
DX: L03.116 Cellulitis of left lower limb (principal); G62.9 Polyneuropathy, unspecified; G89.29 Other chronic pain; Z88.8 Allergy status to other drugs, medicaments and biological substances; Z88.6 Allergy status to analgesic agent; Z79.899 Other long term (current) drug therapy; Z79.2 Long term (current) use of antibiotics; Z86.718 Personal history of other venous thrombosis and embolism; Z90.49 Acquired absence of other specified parts of digestive tract; Z98.84 Bariatric surgery status; Z90.710 Acquired absence of both cervix and uterus; Z98.890 Other specified postprocedural states
CPT/HCPCS: 36415; 73610; 80053; 85025; 85610; 85730; 93971; 99284

== ENCOUNTER 2019-10-18 15:27 | Inpatient (IN) | payer MEDICARE, BC ==
[~2019-10-18] VITALS: Ht 172.7 cm; Wt 51.8 kg
[~2019-10-18 15:27] MED LIST changes: +CEPH250T PO
[2019-10-18 18:48] LABS: MEAN CORPUSCULAR HEMOGLOBIN 44.6 PG (27.0-31.0); MEAN CORPUSCULAR HGB CONC 32.3 g/dL (33.0-36.5); MEAN CORPUSCULAR VOLUME 138.3 FL (78-98); PLATELET COUNT 365 X10'3 (140-440); RED BLOOD COUNT 1.44 X10'6 (4.20-5.60); RED CELL DISTRIBUTION WIDTH 20.1 % (11.5-14.5); WHITE BLOOD COUNT 3.7 X10'3 (4.5-11.0)
[2019-10-18 19:03] LABS: ALANINE AMINOTRANSFERASE 24 U/L (12-78); ALBUMIN 2.8 G/DL (3.4-5.0); ALBUMIN/GLOBULIN RATIO 0.9 (1.1-1.5); ALKALINE PHOSPHATASE 114 IU/L (46-116); ANION GAP 3 (8-16); ASPARTATE AMINO TRANSFERASE 11 U/L (10-37); BILIRUBIN,TOTAL 0.4 MG/DL (0.1-1.0); BLOOD UREA NITROGEN 16 MG/DL (7-18); BUN/CREATININE RATIO 28.6 (6.6-38.0); CALCIUM 7.9 MG/DL (8.5-10.1); CHLORIDE 106 MMOL/L (99-107); CREATININE 0.56 MG/DL (0.40-0.90); GLUCOSE 77 MG/DL (70-104); POTASSIUM 4.2 MMOL/L (3.5-5.1); SODIUM 135 MMOL/L (135-145); TOTAL CARBON DIOXIDE 26.4 MMOL/L (24-32); TOTAL PROTEIN 5.9 G/DL (6.4-8.2); eGFR > 90 ML/MIN
[2019-10-18 19:04] LABS: HEMOGLOBIN 6.4 g/dl (12.0-16.0)
[2019-10-18 19:08] LABS: MAGNESIUM 2.2 MG/DL (1.5-2.4); PHOSPHORUS 2.6 MG/DL (2.3-4.5)
[2019-10-18 19:20] LABS: PARTIAL THROMBOPLASTIN TIME 30 SECONDS (22-32)
[2019-10-18 19:34] LABS: NUCLEATED RED BLOOD CELLS 6 /100WBC (0-0); PLATELET ESTIMATE NORMAL; TOTAL CELLS COUNTED 100
[2019-10-18] MEDS ORDERED: iohexol 350MG/ML 100ml bottle IV ONE (19:34)
[2019-10-18 19:35] LABS: ANISOCYTOSIS 3+; LARGE PLATELETS MODERATE; POLYCHROMASIA 1+
[2019-10-18] MEDS ORDERED: oxyCODONE/APAP 5-325mg tablet PO ONE (20:20)
[2019-10-18] MEDS ORDERED: ESCI20TA38 (20:27)
[2019-10-18] MEDS ORDERED: TRAZ-219 (20:27)
[2019-10-18] MEDS ORDERED: BUPR100T7 (20:27)
[2019-10-18] MEDS ORDERED: APIX5TAB3 (20:27)
[2019-10-18] MEDS ORDERED: BACL10TA2 (20:27)
[2019-10-18] MEDS ORDERED: HYDR4TAB55 (20:27)
[2019-10-18] MEDS ORDERED: potassium CL 10mEq/100ml bag 100 ML IV PRN ×2 (23:10)
[2019-10-18] MEDS ORDERED: mag hydrox/Alum hydrox/simeth 30ml oral suspension PO PRN (23:10)
[2019-10-18] MEDS ORDERED: magnesium hydroxide 30ml (MOM) UD suspension PO PRN (23:10)
[2019-10-18] MEDS ORDERED: azithromycin/NS 500mg/250ml 250 ML IV SCH ×2 (23:10→23:25)
[2019-10-18] MEDS ORDERED: acetaminophen 325mg tablet PO PRN ×2 (23:10)
[2019-10-18] MEDS ORDERED: nitroGLYCERIN 0.4mg SUBLingual tab SL PRN (23:10)
[2019-10-18] MEDS ORDERED: ipratropium/albuterol 3ml nebule NEB PRN (23:10)
[2019-10-18] MEDS ORDERED: magnesium 2GM in 50ml NS 50 ML IV PRN (23:10)
[2019-10-18] MEDS ORDERED: magnesium Cl slow-release 64mg tablet PO PRN (23:10)
[2019-10-18] MEDS ORDERED: potassium Cl 20 mEq SR tablet PO PRN ×2 (23:10)
[2019-10-18] MEDS ORDERED: magnesium 4gm in 100ml NS 100 ML IV PRN (23:10)
[2019-10-18 23:41] LABS: MEAN CORPUSCULAR HEMOGLOBIN 44.6 PG (27.0-31.0); MEAN CORPUSCULAR HGB CONC 32.2 g/dL (33.0-36.5); MEAN CORPUSCULAR VOLUME 138.4 FL (78-98); MEAN PLATELET VOLUME 7.9 FL (7.4-10.4); PLATELET COUNT 374 X10'3 (140-440); RED BLOOD COUNT 1.53 X10'6 (4.20-5.60); RED CELL DISTRIBUTION WIDTH 20.4 % (11.5-14.5); WHITE BLOOD COUNT 3.3 X10'3 (4.5-11.0)
[2019-10-18 23:44] LABS: HEMATOCRIT 21.2 % (35.0-45.0); HEMOGLOBIN 6.8 g/dl (12.0-16.0)
[2019-10-18] MEDS: CefTRIAXone 2gm/D5W 50ml 50 ML IV SCH (23:52)
--- NOTE | 2019-10-19 00:32 | NUR ---
pt will bring in med list unable to reconsile meds. pt unable to state frquency.
[2019-10-19 01:25] VITALS: BP 121/66
[2019-10-19 03:12] LABS: EOSINOPHILS # (AUTO) 0.1 X10'3 (0-0.9); LYMPHOCYTES # (AUTO) 0.9 X10'3 (1.1-4.8); MEAN CORPUSCULAR HEMOGLOBIN 44.5 PG (27.0-31.0); MONOCYTES # (AUTO) 0.6 X10'3 (0-0.9); NEUTROPHILS # (AUTO) 1.4 X10'3 (1.8-7.7); NEUTROPHILS % (AUTO) 45.7 % (42-75); PLATELET COUNT 415 X10'3 (140-440)
[2019-10-19 03:14] LABS: BASOPHILS # (AUTO) 0.1 X10'3 (0-0.2); BASOPHILS % (AUTO) 1.8 % (0-1); LYMPHOCYTES % (AUTO) 29.9 % (21-51); MEAN CORPUSCULAR HGB CONC 32.7 g/dL (33.0-36.5); MEAN CORPUSCULAR VOLUME 136.3 FL (78-98); MONOCYTES % (AUTO) 19.6 % (2-12); RED BLOOD COUNT 1.53 X10'6 (4.20-5.60); RED CELL DISTRIBUTION WIDTH 20.1 % (11.5-14.5)
[2019-10-19 03:17] LABS: HEMATOCRIT 20.9 % (35.0-45.0); HEMOGLOBIN 6.8 g/dl (12.0-16.0)
[2019-10-19 03:33] LABS: % IRON SATURATION 13 % (11-46); IRON 35 UG/DL (49-151); TOTAL IRON BINDING CAPACITY 273 UG/DL (259-388)
[2019-10-19 03:37] VITALS: BP 119/67
[2019-10-19 03:38] LABS: ANISOCYTOSIS 3+; NUCLEATED RED BLOOD CELLS 14 /100WBC (0-0); PLATELET ESTIMATE NORMAL; TOTAL CELLS COUNTED 100
[2019-10-19 03:39] LABS: ACANTHOCYTES FEW; ALBUMIN 2.6 G/DL (3.4-5.0); ANION GAP 6 (8-16); BLOOD UREA NITROGEN 15 MG/DL (7-18); BUN/CREATININE RATIO 21.4 (6.6-38.0); CALCIUM 7.7 MG/DL (8.5-10.1); CHLORIDE 106 MMOL/L (99-107); GLUCOSE 126 MG/DL (70-104); MAGNESIUM 2.3 MG/DL (1.5-2.4); POLYCHROMASIA 1+; POTASSIUM 3.9 MMOL/L (3.5-5.1); SCHISTOCYTES FEW; SODIUM 139 MMOL/L (135-145); TOTAL CARBON DIOXIDE 27.2 MMOL/L (24-32); eGFR 85 ML/MIN
[2019-10-19 03:53] VITALS: BP 128/65
[2019-10-19 04:52] VITALS: BP 121/72
[2019-10-19] MEDS ORDERED: oxyCODONE/APAP 5-325mg tablet PO PRN (05:50)
[2019-10-19 05:59] VITALS: BP 134/69
--- NOTE | 2019-10-19 06:37 | NUR ---
Problems reprioritized. Patient report given, questions answered & plan of care reviewed with Mary TEJADA.
[2019-10-19 06:56] VITALS: BP 132/72
[2019-10-19] MEDS ORDERED: gabapentin 400mg capsule PO SCH (08:00)
[2019-10-19] MEDS ORDERED: lactobacillus rhamnosus 10,000 MMU CELLS/CAPSULE PO SCH (08:00)
[2019-10-19] MEDS ORDERED: citalopram 20mg tablet PO SCH (08:00)
[2019-10-19] MEDS ORDERED: nicotine 14mg patch - 24hr TD SCH (08:00)
[2019-10-19] MEDS ORDERED: K and/or MAG REPLACEMENT MC SCH (08:00)
[2019-10-19] MEDS: CefTRIAXone 2gm/D5W 50ml 50 ML IV SCH (08:55)
[2019-10-19] MEDS ORDERED: ipratropium/albuterol 3ml nebule NEB SCH (09:00)
--- NOTE | 2019-10-19 10:57 | NUR ---
PT. STATED SHE HAD BM BEFORE CHANGE OF SHIFT SO THIS NURSE WAS UNABLE TO ASSESS BM OR OBTAIN OCCULT SAMPLE. Addendum: 10/19/19 at 1101 by Mary Buckley RN Amended: Links added.
--- NOTE | 2019-10-19 11:00 | NUR ---
VERIFIED WITH MD OLMSTEAD THAT A H&H did not need to be drawn before discharge. rounded and assessed pt.
[2019-10-19] MEDS ORDERED: POTA-82 PO (11:03)
[2019-10-19] MEDS ORDERED: FURO-150 PO (11:03)
--- NOTE | 2019-10-19 11:45 | NUR ---
PT DISCHARGED, PAPERWORK REVIEWED WITH PT., IV AND TELE DC'D. PT KNOWS TO BRANCHER PRESCRIPTIONS AT PHARMACY.
[2019-10-19] MEDS ORDERED: nortriptyline 25mg capsule PO SCH (21:00)
== END 2019-10-19 11:46 | disposition home or self-care (01) | DRG 293 ==
LOC: ER 15:28 → ED HOLD 23:07 → SUR 3N 10-19 00:30
PROVIDERS: ADMIT Hospitalist; ATTEND Internal Medicine
PROC: B32T1ZZ Computerized Tomography (CT Scan) of Left Pulmonary Artery using Low Osmolar Contrast (ICD-10-PCS; principal; 2019-10-18)
PROC: B32S1ZZ Computerized Tomography (CT Scan) of Right Pulmonary Artery using Low Osmolar Contrast (ICD-10-PCS; 2019-10-18)
PROC: 30233N1 Transfusion of Nonautologous Red Blood Cells into Peripheral Vein, Percutaneous Approach (ICD-10-PCS; 2019-10-19)
DX: I50.33 Acute on chronic diastolic (congestive) heart failure (principal); D53.9 Nutritional anemia, unspecified; G89.4 Chronic pain syndrome; M54.9 Dorsalgia, unspecified; G62.9 Polyneuropathy, unspecified; Z98.84 Bariatric surgery status; Z90.710 Acquired absence of both cervix and uterus; Z79.891 Long term (current) use of opiate analgesic; Z86.711 Personal history of pulmonary embolism; Z88.8 Allergy status to other drugs, medicaments and biological substances; Z79.899 Other long term (current) drug therapy; Z81.1 Family history of alcohol abuse and dependence; Z86.718 Personal history of other venous thrombosis and embolism
CPT/HCPCS: 36415; 36430; 71045; 71275; 80048; 80053; 82607; 83540; 83550; 83605; 83735; 83880; 84100; 84145; 84439; 84443; 85025; 85027; 85610; 85730; 86885; 86900; 86901; 86920; 87040; 87081; 87502; 87503; 93005; 93971; 94760; 99285; G0378; J0456; J0696; P9016; Q9967

== ENCOUNTER 2020-01-03 17:45 | Inpatient (IN) | payer BC, MEDICARE ==
[~2020-01-03] VITALS: Ht 172.7 cm; Wt 76.2 kg
[~2020-01-03 17:45] MED LIST changes: -ALBU8.5H8 IH; -BACL10TA PO; -CEPH250T PO; -FERR225T PO; -KEN0.1O TP; +POTA-82 PO
[2020-01-03 19:14] LABS: BASOPHILS # (AUTO) 0.1 X10'3 (0-0.2); LYMPHOCYTES # (AUTO) 1.4 X10'3 (1.1-4.8); MEAN CORPUSCULAR VOLUME 131.7 FL (78-98); MONOCYTES # (AUTO) 0.6 X10'3 (0-0.9)
[2020-01-03] MEDS ORDERED: normal saline 1000ML IV soln IVB ONE (19:15)
[2020-01-03 19:16] LABS: BASOPHILS % (AUTO) 2.2 % (0-1); EOSINOPHILS # (AUTO) 0.2 X10'3 (0-0.9); EOSINOPHILS % (AUTO) 6.4 % (0-6); LYMPHOCYTES % (AUTO) 58.9 % (21-51); MEAN CORPUSCULAR HEMOGLOBIN 43.2 PG (27.0-31.0); MEAN CORPUSCULAR HGB CONC 32.8 g/dL (33.0-36.5); MEAN PLATELET VOLUME 8.2 FL (7.4-10.4); MONOCYTES % (AUTO) 25.1 % (2-12); NEUTROPHILS # (AUTO) 0.2 X10'3 (1.8-7.7); NEUTROPHILS % (AUTO) 7.4 % (42-75); PLATELET COUNT 324 X10'3 (140-440); RED BLOOD COUNT 1.27 X10'6 (4.20-5.60); RED CELL DISTRIBUTION WIDTH 20.9 % (11.5-14.5); WHITE BLOOD COUNT 2.4 X10'3 (4.5-11.0)
[2020-01-03 19:26] LABS: HEMATOCRIT 16.8 % (35.0-45.0); HEMOGLOBIN 5.5 g/dl (12.0-16.0)
[2020-01-03 19:29] LABS: ALANINE AMINOTRANSFERASE 21 U/L (12-78); ALBUMIN 3.3 G/DL (3.4-5.0); ALBUMIN/GLOBULIN RATIO 1.1 (1.1-1.5); ALKALINE PHOSPHATASE 101 IU/L (46-116); ANION GAP 10 (8-16); ASPARTATE AMINO TRANSFERASE 20 U/L (10-37); BILIRUBIN,TOTAL 0.6 MG/DL (0.1-1.0); BLOOD UREA NITROGEN 20 MG/DL (7-18); BUN/CREATININE RATIO 29.4 (6.6-38.0); CHLORIDE 106 MMOL/L (99-107); CREATININE 0.68 MG/DL (0.40-0.90); GLUCOSE 92 MG/DL (70-104); POTASSIUM 4.3 MMOL/L (3.5-5.1); SODIUM 137 MMOL/L (135-145); TOTAL CARBON DIOXIDE 21.2 MMOL/L (24-32); TOTAL PROTEIN 6.3 G/DL (6.4-8.2); eGFR 87 ML/MIN
[2020-01-03 19:36] LABS: ABSOLUTE RETICS # 38200 /CUMM (23000-93000); PARTIAL THROMBOPLASTIN TIME 32 SECONDS (22-32)
[2020-01-03 19:53] LABS: LIPASE 66 U/L (73-393); MAGNESIUM 2.2 MG/DL (1.5-2.4)
[2020-01-03] MEDS ORDERED: TRAZ-256 PO (20:19)
[2020-01-03] MEDS ORDERED: BACL10TA PO (20:19)
[2020-01-03] MEDS ORDERED: BUPR100T5 PO (20:19)
[2020-01-03] MEDS ORDERED: ESCI20TA25 PO (20:19)
[2020-01-03] MEDS ORDERED: APIX5TAB3 PO (20:19)
[2020-01-03] MEDS ORDERED: normal saline 1000ml 1,000 ML IV SCH (20:42)
[2020-01-03] MEDS ORDERED: ondansetron/PF 4mg/2ml inj IV PRN (20:45)
[2020-01-03] MEDS ORDERED: magnesium hydroxide 30ml (MOM) UD suspension PO PRN (20:45)
[2020-01-03] MEDS ORDERED: acetaminophen 325mg tablet PO PRN (20:45)
[2020-01-03] MEDS ORDERED: mag hydrox/Alum hydrox/simeth 30ml oral suspension PO PRN (20:45)
[2020-01-03 20:46] VITALS: BP 142/67
[2020-01-03] MEDS ORDERED: HYDROcodone/acetaminophen 5mg/325mg tablet PO SCH (21:00)
[2020-01-03 21:01] VITALS: BP 109/65
[2020-01-03 21:04] LABS: NUCLEATED RED BLOOD CELLS 14 /100WBC (0-0); TOTAL CELLS COUNTED 100
[2020-01-03 21:05] LABS: ANISOCYTOSIS 3+; HYPOCHROMASIA 1+; PLATELET ESTIMATE NORMAL; POIKILOCYTOSIS 1+; SCHISTOCYTES 1+
[2020-01-03] MEDS ORDERED: cyanocobalamin 1,000 mcg/ml inj IM ONE (21:05)
[2020-01-03 22:00] VITALS: BP 131/62
[2020-01-03 22:01] VITALS: BP 131/62
[2020-01-03] MEDS ORDERED: apixaban 5mg tablet PO SCH (22:46)
[2020-01-03] MEDS ORDERED: baclofen 10mg tablet PO SCH (22:46)
[2020-01-03] MEDS ORDERED: gabapentin 400mg capsule PO SCH (22:47)
[2020-01-03] MEDS ORDERED: traZODone 50mg tablet PO SCH (22:57)
[2020-01-03 23:01] VITALS: BP 129/71
[2020-01-04] VITALS (7 sets, daily range): BP systolic 91–165; BP diastolic 50–89
[2020-01-04] MEDS ORDERED: HYDROmorphone 2mg tablet PO SCH ×2 (04:30→21:00)
--- NOTE | 2020-01-04 06:00 | NUR ---
Pharmacy called stating pt does not take hydrocodone; rather takes hydromorphone. Reviewed with MD and received updated order to match correct medication.
[2020-01-04 06:13] LABS: HEMOGLOBIN 8.6 g/dl (12.0-16.0); MEAN PLATELET VOLUME 8.5 FL (7.4-10.4)
[2020-01-04 06:18] LABS: HEMATOCRIT 24.9 % (35.0-45.0); MEAN CORPUSCULAR HEMOGLOBIN 37.3 PG (27.0-31.0); MEAN CORPUSCULAR HGB CONC 34.4 g/dL (33.0-36.5); MEAN CORPUSCULAR VOLUME 108.5 FL (78-98); PLATELET COUNT 314 X10'3 (140-440); RED BLOOD COUNT 2.29 X10'6 (4.20-5.60); RED CELL DISTRIBUTION WIDTH 32.9 % (11.5-14.5)
[2020-01-04 06:25] LABS: WHITE BLOOD COUNT 1.7 X10'3 (4.5-11.0)
[2020-01-04 06:38] LABS: ALANINE AMINOTRANSFERASE 24 U/L (12-78); ALBUMIN 3.2 G/DL (3.4-5.0); ALBUMIN/GLOBULIN RATIO 1.1 (1.1-1.5); ALKALINE PHOSPHATASE 104 IU/L (46-116); ANION GAP 12 (8-16); ASPARTATE AMINO TRANSFERASE 19 U/L (10-37); BILIRUBIN,TOTAL 0.9 MG/DL (0.1-1.0); BLOOD UREA NITROGEN 20 MG/DL (7-18); BUN/CREATININE RATIO 24.1 (6.6-38.0); CALCIUM 7.8 MG/DL (8.5-10.1); CHLORIDE 110 MMOL/L (99-107); CREATININE 0.83 MG/DL (0.40-0.90); GLUCOSE 172 MG/DL (70-104); POTASSIUM 4.4 MMOL/L (3.5-5.1); SODIUM 143 MMOL/L (135-145); TOTAL CARBON DIOXIDE 20.9 MMOL/L (24-32); TOTAL PROTEIN 6.1 G/DL (6.4-8.2); eGFR 69 ML/MIN
--- NOTE | 2020-01-04 06:49 | NUR ---
Problems reprioritized. Patient report given, questions answered & plan of care reviewed with TERRELL Santana.
--- NOTE | 2020-01-04 07:00 | NUR ---
Patient in room BRIAN 360. I have received report from Evelyn TEJADA and had the opportunity to ask questions and assume patient care.
[2020-01-04 07:28] LABS: NUCLEATED RED BLOOD CELLS 34 /100WBC (0-0); PLATELET ESTIMATE NORMAL; TOTAL CELLS COUNTED 100
[2020-01-04 07:30] LABS: ANISOCYTOSIS 3+; HYPOCHROMASIA 1+; POLYCHROMASIA 2+; SCHISTOCYTES 1+; TARGET CELLS FEW
[2020-01-04] MEDS ORDERED: HYDROcodone/acetaminophen 5mg/325mg tablet PO SCH (07:30)
[2020-01-04 07:31] LABS: BURR CELLS 1+
[2020-01-04] MEDS ORDERED: cyanocobalamin 1,000 mcg/ml inj IM ONE (08:00)
[2020-01-04] MEDS ORDERED: ESCITALOPRAM OXALATE 5 MG TABLET PO SCH (08:00)
[2020-01-04] MEDS ORDERED: PANT-47 PO (09:05)
--- NOTE | 2020-01-04 10:40 | NUR ---
Patient discharge was done with spouse in the room. Patient understood discharge teaching and new medication regime. Patient collected all belongings upon discharge. Stated she had everything at discharge. Patient IV taken out at time of discharge. Canula was whole and intact upon removal, patient showed minimal bleeding. Patient was taken to lobby via wheelchair.
== END 2020-01-04 10:35 | disposition home or self-care (01) | DRG 812 ==
LOC: ER 17:46 → ED HOLD 20:42 → UNDOADMIN 21:06 → SUR 3N 21:15 → ED HOLD 21:15 → SUR 3N 22:25 → UNDODISIN 01-04 10:35
PROVIDERS: ADMIT Internal Medicine; ATTEND Internal Medicine
PROC: 30233N1 Transfusion of Nonautologous Red Blood Cells into Peripheral Vein, Percutaneous Approach (ICD-10-PCS; principal; 2020-01-03)
DX: D53.9 Nutritional anemia, unspecified (principal); F17.210 Nicotine dependence, cigarettes, uncomplicated; F12.90 Cannabis use, unspecified, uncomplicated; F32.9 Major depressive disorder, single episode, unspecified; G62.9 Polyneuropathy, unspecified; G89.29 Other chronic pain; M54.9 Dorsalgia, unspecified; Z79.899 Other long term (current) drug therapy; Z86.711 Personal history of pulmonary embolism; Z86.718 Personal history of other venous thrombosis and embolism; Z90.710 Acquired absence of both cervix and uterus; Z98.84 Bariatric surgery status; Z88.5 Allergy status to narcotic agent; Z88.8 Allergy status to other drugs, medicaments and biological substances; Z81.1 Family history of alcohol abuse and dependence
CPT/HCPCS: 36415; 36430; 71045; 80053; 82607; 83690; 83735; 83880; 85025; 85045; 85610; 85730; 86885; 86900; 86901; 86920; 87081; 93005; 99291; G0378; J7030; P9016

== ENCOUNTER 2021-05-06 14:02 | Emergency (ER) | payer MEDICARE, BC ==
[~2021-05-06] VITALS: Ht 172.7 cm; Wt 50.9 kg
[~2021-05-06 14:02] MED LIST changes: +APIX5TAB3 PO; +BACL10TA PO; -CITA20TA28 PO; +ESCI20TA25 PO; -FLUT16SP18 NS; -FURO-150 PO; -NICO-631 TD; -NORT25CA PO; +PANT-47 PO; -POTA-82 PO; +TRAZ-256 PO
[2021-05-06 15:04] VITALS: BP 124/89
[2021-05-06] MEDS ORDERED: TETanus/Pertussis (Acell)/Diphther VAC/PF (Tdap-Adult) 0.5ml syringe IMVAC ONE (15:20)
[2021-05-06] MEDS ORDERED: LIDOcaine 1% W/epiNEPHrine 1:200,000 10ml vial IJ ONE (15:20)
== END 2021-05-06 17:15 | disposition home or self-care (01) ==
LOC: ER 14:02
DX: S81.812A Laceration without foreign body, left lower leg, initial encounter (principal); G89.29 Other chronic pain; F12.90 Cannabis use, unspecified, uncomplicated; Z86.73 Personal history of transient ischemic attack (TIA), and cerebral infarction without residual deficits; Z20.3 Contact with and (suspected) exposure to rabies; Z86.711 Personal history of pulmonary embolism; Z87.01 Personal history of pneumonia (recurrent); Z90.49 Acquired absence of other specified parts of digestive tract; Z90.710 Acquired absence of both cervix and uterus; Z98.890 Other specified postprocedural states; Z88.8 Allergy status to other drugs, medicaments and biological substances; Z88.5 Allergy status to narcotic agent; Z79.899 Other long term (current) drug therapy; X58.XXXA Exposure to other specified factors, initial encounter; Y93.89 Activity, other specified; Y92.89 Other specified places as the place of occurrence of the external cause; Y99.8 Other external cause status
CPT/HCPCS: 12002; 90471; 90715; 99283

== ENCOUNTER 2023-07-26 11:01 | Inpatient (IN) | payer MEDICARE, BC ==
[~2023-07-26] VITALS: Ht 172.7 cm; Wt 46.0 kg
[~2023-07-26 11:01] MED LIST changes: -ESCI20TA25 PO; +ESCI20TA36 PO; -GABA-534 PO; +GABA-535 PO
--- NOTE | 2023-07-26 12:30 | NUR ---
I have reviewed and agree with all interventions, assessments performed and documented by DAY Mclean.
--- NOTE | 2023-07-26 13:38 | NUR ---
Pts Sonny Thomas called for update, pt gave verbal okay to speak to spouse. I informed , possible r/o bowel blockage
--- NOTE | 2023-07-26 13:58 | NUR ---
aware of pts arrival
--- NOTE | 2023-07-26 14:37 | NUR ---
DR CR AWARE NGT PULLED OUT BY PATIENT.
--- NOTE | 2023-07-26 14:37 | NUR ---
pt pulled out NG tube, aware. 1000ml obtained from erazo bag.
[2023-07-26] MEDS ORDERED: ringers solution, lacted 1,000 ML IV ONE (16:05)
[2023-07-26] MEDS ORDERED: potassium Cl 20 mEq SR tablet PO PRN (16:15)
[2023-07-26] MEDS ORDERED: ondansetron/PF 4mg/2ml inj IV PRN (16:15)
[2023-07-26] MEDS ORDERED: magnesium 4gm in 100ml NS 100 ML IV PRN (16:15)
[2023-07-26] MEDS ORDERED: acetaminophen 325mg tablet PO PRN (16:15)
[2023-07-26] MEDS ORDERED: magnesium Cl slow-release 64mg tablet PO PRN (16:15)
[2023-07-26] MEDS ORDERED: potassium Cl 40MEQ/1/2NS 520ml 520 ML IV PRN (16:15)
[2023-07-26] MEDS: normal saline 1000ml 1,000 ML IV SCH (16:15)
[2023-07-26] MEDS ORDERED: magnesium 2GM in 50ml NS 50 ML IV PRN (16:15)
[2023-07-26] MEDS ORDERED: FURO40TA4 PO (16:25)
[2023-07-26] MEDS ORDERED: MORP10CA8 PO (16:25)
[2023-07-26] MEDS ORDERED: TRAZ-251 PO (16:25)
[2023-07-26] MEDS ORDERED: HYDR4TAB55 PO (16:25)
[2023-07-26] MEDS: K and/or MAG REPLACEMENT MC SCH (20:00)
[2023-07-26] MEDS: morphine 2 MG/ML inj. syringe IV PRN (21:16)
--- NOTE | 2023-07-27 00:23 | NUR ---
NO LAB VALUES AVAILABLE, DID NOT INITIATE K+/MAG REPLACEMENT
[2023-07-27] MEDS: normal saline 1000ml 1,000 ML IV SCH ×2 (02:15→12:29)
[2023-07-27] MEDS: morphine 2 MG/ML inj. syringe IV PRN ×4 (02:34→21:18)
[2023-07-27] MEDS ORDERED: naloxone 0.4 mg/ml inj IV PRN (03:30)
[2023-07-27] MEDS ORDERED: morphine/NS PCA 1mg/ml 50ml 50 ML IV SCH (05:00)
[2023-07-27] MEDS: K and/or MAG REPLACEMENT MC SCH ×2 (08:00→23:00)
[2023-07-27] MEDS ORDERED: PCA WASTE DOCUMENTATION 1 MG ML MC ONE (08:00)
[2023-07-27 08:01] LABS: BASOPHILS % (AUTO) 0.3 % (0-1); EOSINOPHILS % (AUTO) 0.2 % (0-6); HEMATOCRIT 43.1 % (35.0-45.0); HEMOGLOBIN 14.5 g/dl (12.0-16.0); LYMPHOCYTES # (AUTO) 1.2 X10'3 (1.1-4.8); LYMPHOCYTES % (AUTO) 13.4 % (21-51); MEAN CORPUSCULAR HEMOGLOBIN 34.6 PG (27.0-31.0); MEAN CORPUSCULAR HGB CONC 33.8 g/dL (33.0-36.5); MEAN CORPUSCULAR VOLUME 102.4 FL (78-98); MEAN PLATELET VOLUME 8.2 FL (7.4-10.4); MONOCYTES # (AUTO) 0.6 X10'3 (0-0.9); MONOCYTES % (AUTO) 6.4 % (2-12); NEUTROPHILS % (AUTO) 79.7 % (42-75); PLATELET COUNT 305 X10'3 (140-440); RED BLOOD COUNT 4.21 X10'6 (4.20-5.60); RED CELL DISTRIBUTION WIDTH 14.6 % (11.5-14.5); WHITE BLOOD COUNT 8.7 X10'3 (4.5-11.0)
[2023-07-27 08:14] LABS: ALBUMIN 2.9 G/DL (3.4-5.0); ANION GAP 12 (8-16); BLOOD UREA NITROGEN 9 MG/DL (7-18); BUN/CREATININE RATIO 17.3 (10.0-20.0); CALCIUM 8.8 MG/DL (8.5-10.1); CHLORIDE 101 MMOL/L (99-107); CREATININE 0.52 MG/DL (0.40-0.90); GLUCOSE 99 MG/DL (70-104); POTASSIUM 3.4 MMOL/L (3.5-5.1); SODIUM 133 MMOL/L (135-145); TOTAL CARBON DIOXIDE 20.4 MMOL/L (24-32); eCRCL 76 ML/MIN; eGFR > 90 ML/MIN
[2023-07-27] MEDS ORDERED: morphine 2 MG/ML inj. syringe IV PRN (09:55)
--- NOTE | 2023-07-27 12:15 | NUR ---
Patient off to stress test via wheelchair. Echo performed bedside previously.
[2023-07-27] MEDS: lisinopril 5mg tablet PO SCH (12:28)
[2023-07-27] MEDS: potassium Cl 20 mEq SR tablet PO PRN ×2 (12:44→21:19)
[2023-07-27] MEDS ORDERED: magnesium 2GM in 50ml NS 50 ML IV ONE (15:50)
[2023-07-27] MEDS ORDERED: normal saline 1000ml 1,000 ML IV ONE (15:50)
[2023-07-27] MEDS ORDERED: proCHLORperazine 10 MG/2 ml inj IV ONE (15:50)
[2023-07-27] MEDS ORDERED: diphenhydrAMINE 50 mg/ml inj IV ONE (15:50)
[2023-07-27] MEDS: gabapentin 400mg capsule PO SCH ×2 (17:16→21:06)
[2023-07-27] MEDS: apixaban 5mg tablet PO SCH (20:49)
--- NOTE | 2023-07-27 21:35 | NUR ---
Performed: hourly to q 30 min rounds, pt. comfortable, waiting for bed, 5 Ps assessed. Pt. calm and cooperative.
--- NOTE | 2023-07-27 21:45 | NUR ---
NPO clear liquids for meds.
--- NOTE | 2023-07-27 22:08 | NUR ---
CALLING REPORT FOR [id number] A NURSE IS DAY HEALY.
--- NOTE | 2023-07-27 22:10 | NUR ---
Received report from Pamela TEJADA ED and awaiting arrival of pt to unit
[2023-07-27 22:30] VITALS: BP 142/66; PULSE 78; RESP 15; TEMP 98.1; O2SAT 96
[2023-07-28] MEDS: normal saline 1000ml 1,000 ML IV SCH (03:19)
[2023-07-28] MEDS: morphine 2 MG/ML inj. syringe IV PRN ×6 (03:33→16:13)
[2023-07-28 06:00] VITALS: BP 178/94; PULSE 61; RESP 16; TEMP 98.5; O2SAT 96
[2023-07-28 06:32] LABS: ALBUMIN 2.9 G/DL (3.4-5.0); ANION GAP 12 (8-16); BLOOD UREA NITROGEN 8 MG/DL (7-18); BUN/CREATININE RATIO 16.7 (10.0-20.0); CALCIUM 8.7 MG/DL (8.5-10.1); CHLORIDE 103 MMOL/L (99-107); CREATININE 0.48 MG/DL (0.40-0.90); GLUCOSE 57 MG/DL (70-104); MAGNESIUM 2.4 MG/DL (1.5-2.4); SODIUM 134 MMOL/L (135-145); TOTAL CARBON DIOXIDE 19.3 MMOL/L (24-32); eCRCL 83 ML/MIN; eGFR > 90 ML/MIN
[2023-07-28 06:34] LABS: POTASSIUM 4.3 MMOL/L (3.5-5.1)
[2023-07-28 06:39] LABS: BASOPHILS % (AUTO) 0.6 % (0-1); EOSINOPHILS % (AUTO) 0.4 % (0-6); HEMOGLOBIN 14.6 g/dl (12.0-16.0); LYMPHOCYTES # (AUTO) 1.1 X10'3 (1.1-4.8); LYMPHOCYTES % (AUTO) 13.9 % (21-51); MEAN CORPUSCULAR HEMOGLOBIN 34.8 PG (27.0-31.0); MEAN CORPUSCULAR HGB CONC 33.3 g/dL (33.0-36.5); MEAN CORPUSCULAR VOLUME 104.4 FL (78-98); MEAN PLATELET VOLUME 8.7 FL (7.4-10.4); MONOCYTES # (AUTO) 0.5 X10'3 (0-0.9); NEUTROPHILS % (AUTO) 78.1 % (42-75); PLATELET COUNT 300 X10'3 (140-440); RED BLOOD COUNT 4.21 X10'6 (4.20-5.60); RED CELL DISTRIBUTION WIDTH 14.9 % (11.5-14.5); WHITE BLOOD COUNT 7.7 X10'3 (4.5-11.0)
[2023-07-28] MEDS ORDERED: traZODone 50mg tablet PO SCH (08:00)
[2023-07-28] MEDS ORDERED: ESCITALOPRAM OXALATE 5 MG TABLET PO SCH (08:00)
[2023-07-28] MEDS: K and/or MAG REPLACEMENT MC SCH (08:00)
[2023-07-28] MEDS: gabapentin 400mg capsule PO SCH ×2 (08:21→12:30)
[2023-07-28] MEDS: apixaban 5mg tablet PO SCH (08:21)
[2023-07-28 08:22] VITALS: BP_SYST 166; PULSE 94
[2023-07-28] MEDS: lisinopril 5mg tablet PO SCH (08:22)
--- NOTE | 2023-07-28 09:51 | NUR ---
rm [id number] Justa Thomas ext [id number] Pt is very hungry and has no abdominal pain. Can I advance her diet thanks, Aliza
[2023-07-28 10:45] VITALS: RESP 16; O2SAT 96
[2023-07-28 10:50] VITALS: RESP 16; O2SAT 96
[2023-07-28] MEDS ORDERED: polyethylene glycol 3350 17gm powd pack PO ONE (14:35)
--- NOTE | 2023-07-28 15:07 | NUR ---
Nutrition consult: re" pt has had lia en y gb. Need small, frequent snacks and meals". Pt admit for SBO per EMR.Pt seen at bedside states lia en y surgery was about 20 years ago. Pt states she eats small frequent meals at home and doesn't restrict food items except fat because she had her gallbladder removed prior. Due to short staffing the kitchen is not able to bring up small frequent snack throughout the day however encouraged pt and RN to utilize the fully stocked nourishment room on the floor. Pt declined food preferences at this time, encouraged pt to reach out to kitchen via RN for any food preferences that may come up. Pt states she drinks Ensure at home ones a day and is agreeable to drinking them here during her stay. Pt states she has not lost any wt recently however her UBW is 110-115 pounds though unsure how long ago that was. Scaled wt this admit of 46kg (101 pounds) and low BMI of 15.4 indicate weight loss has occurred. Pt states her appetite has been ok though typically does not eat when she is sick. Pt physically had noticeable wasting to temporal region, hollow look to orbital region as well protruding prominent clavicle. Additionally pt presents with mild weakness and bilateral lower extremity 1+ edema. Pt meet a minimum of two criteria for malnutrition; MD notified. Discussed with RN recommendation of a multivitamin with iron, B12, and vitamin D per MD discretion. Pt advanced to regular diet today; pending PO intake. Recommend Ensure Enlive BIDWM to help better meet estimated needs; MD notified. Encourage pt to keep Ensure for for in between meals to help better meet estimated needs given malnourished status. Will monitor PO intake trend for further nutrition interventions. No BM yet this admit. Will continue to monitor closely. Recommendations 1. Continue regular diet 2. Encourage snacks between meals from the nourishment room 3. Ensure Enlive BIDWM to help better meet estimated needs given malnourished status; pending physician approval in EMR. 4. Recommend Multivitamin with iron, B12, and Vitamin D given prior route en y surgery hx per MD discretion. 5. Bowel care per physician 6. Weekly scaled wts Addendum: 07/28/23 at [address] Amended: Links added.
[2023-07-28] MEDS ORDERED: POLY17PO10 PO (15:32)
[2023-07-28] MEDS ORDERED: MULT-1219 PO (15:32)
[2023-07-28 16:13] VITALS: RESP 14
== END 2023-07-28 16:45 | disposition home or self-care (01) | DRG 388 ==
LOC: ER 11:01 → ED HOLD 16:17 → ORTHO 4S 07-27 22:20
PROVIDERS: ADMIT Internal Medicine; ATTEND Internal Medicine
DX: K56.600 Partial intestinal obstruction, unspecified as to cause (principal); E43 Unspecified severe protein-calorie malnutrition; Z68.1 Body mass index [BMI] 19.9 or less, adult; D64.9 Anemia, unspecified; F17.210 Nicotine dependence, cigarettes, uncomplicated; J44.9 Chronic obstructive pulmonary disease, unspecified; K21.9 Gastro-esophageal reflux disease without esophagitis; M19.90 Unspecified osteoarthritis, unspecified site; F32.A Depression, unspecified; G89.4 Chronic pain syndrome; G62.9 Polyneuropathy, unspecified; Z98.84 Bariatric surgery status; Z90.710 Acquired absence of both cervix and uterus; Z90.49 Acquired absence of other specified parts of digestive tract; Z98.891 History of uterine scar from previous surgery; Z86.711 Personal history of pulmonary embolism; Z86.718 Personal history of other venous thrombosis and embolism; Z88.5 Allergy status to narcotic agent; Z88.6 Allergy status to analgesic agent; Z88.8 Allergy status to other drugs, medicaments and biological substances; Z86.73 Personal history of transient ischemic attack (TIA), and cerebral infarction without residual deficits; Z87.01 Personal history of pneumonia (recurrent); Z81.1 Family history of alcohol abuse and dependence
CPT/HCPCS: 36415; 80048; 83735; 85025; 87081; 99285; G0378; J0780; J1200; J2270; J3475; J7030; J7120

== ENCOUNTER 2023-08-10 11:42 | Inpatient (IN) | payer MEDICARE, BC ==
[~2023-08-10] VITALS: Ht 172.7 cm; Wt 90.8 kg
[~2023-08-10 11:42] MED LIST changes: -BACL10TA PO; +HYDR4TAB55 PO; +MORP10CA8 PO; +MULT-1219 PO; -PANT-47 PO; +POLY17PO10 PO; +TRAZ-251 PO; -TRAZ-256 PO
--- NOTE | 2023-08-10 12:27 | NUR ---
pt fell again last TuesdayAug 07 on right hip
[2023-08-10] MEDS ORDERED: morphine 10mg/ml inj. IV ONE (12:40)
[2023-08-10 13:18] LABS: BASOPHILS # (AUTO) 0.1 X10'3 (0-0.2); EOSINOPHILS # (AUTO) 0.1 X10'3 (0-0.9); EOSINOPHILS % (AUTO) 1.7 % (0-6); HEMATOCRIT 34.9 % (35.0-45.0); HEMOGLOBIN 11.6 g/dl (12.0-16.0); LYMPHOCYTES # (AUTO) 1.6 X10'3 (1.1-4.8); LYMPHOCYTES % (AUTO) 23.9 % (21-51); MEAN CORPUSCULAR HEMOGLOBIN 34.2 PG (27.0-31.0); MEAN CORPUSCULAR HGB CONC 33.2 g/dL (33.0-36.5); MEAN CORPUSCULAR VOLUME 102.9 FL (78-98); MEAN PLATELET VOLUME 7.9 FL (7.4-10.4); MONOCYTES # (AUTO) 0.6 X10'3 (0-0.9); MONOCYTES % (AUTO) 8.5 % (2-12); NEUTROPHILS # (AUTO) 4.4 X10'3 (1.8-7.7); NEUTROPHILS % (AUTO) 64.9 % (42-75); PLATELET COUNT 321 X10'3 (140-440); RED BLOOD COUNT 3.39 X10'6 (4.20-5.60); WHITE BLOOD COUNT 6.7 X10'3 (4.5-11.0)
[2023-08-10 13:28] LABS: APTT 34 SECONDS (22-32); PROTHROMBIN TIME 10.3 SECONDS (9.0-12.0)
[2023-08-10 13:31] LABS: ALANINE AMINOTRANSFERASE 19 U/L (12-78); ALBUMIN 2.3 G/DL (3.4-5.0); ALBUMIN/GLOBULIN RATIO 0.7 (1.1-1.5); ALKALINE PHOSPHATASE 179 IU/L (46-116); ANION GAP -1 (8-16); ASPARTATE AMINO TRANSFERASE 20 U/L (10-37); BILIRUBIN,TOTAL 0.2 MG/DL (0.1-1.0); BLOOD UREA NITROGEN 19 MG/DL (7-18); CALCIUM 8.1 MG/DL (8.5-10.1); CHLORIDE 103 MMOL/L (99-107); GLUCOSE 85 MG/DL (70-104); POTASSIUM 4.7 MMOL/L (3.5-5.1); SODIUM 133 MMOL/L (135-145); TOTAL CARBON DIOXIDE 30.5 MMOL/L (24-32); TOTAL PROTEIN 5.8 G/DL (6.4-8.2); eCRCL 86 ML/MIN; eGFR > 90 ML/MIN
[2023-08-10 13:47] LABS: BILIRUBIN,URINE NEGATIVE (Neg); CLARITY,URINE CLEAR (Clear); COLOR,URINE YELLOW (Yellow); GLUCOSE, URINE NEGATIVE (Neg); KETONES,URINE NEGATIVE (Neg); LEUKOCYTE ESTERASE ,URINE NEGATIVE (Neg); NITRITES, URINE NEGATIVE (Neg); OCCULT BLOOD,URINE TRACE-INTACT (Neg); PROTEIN,URINE NEGATIVE (Neg)
[2023-08-10] MEDS ORDERED: normal saline 1000ML IV soln IVB ONE (13:50)
[2023-08-10 13:53] LABS: BACTERIA,URINE NONE SEEN /HPF (Neg); SQUAMOUS EPITHELIAL CELL,UR FEW /LPF (FEW); UA COLLECTION TYPE FOLEY CATH
[2023-08-10 13:54] LABS: WBC,URINE 0-4 /HPF (0-4)
[2023-08-10] MEDS ORDERED: magnesium 2GM in 50ml NS 50 ML IV PRN (14:25)
[2023-08-10] MEDS ORDERED: potassium Cl 20 mEq SR tablet PO PRN ×2 (14:25)
[2023-08-10] MEDS ORDERED: magnesium hydroxide 30ml (MOM) UD suspension PO PRN (14:25)
[2023-08-10] MEDS ORDERED: morphine 2 MG/ML inj. syringe IV PRN (14:25)
[2023-08-10] MEDS ORDERED: acetaminophen 325mg tablet PO PRN (14:25)
[2023-08-10] MEDS ORDERED: mag hydrox/Alum hydrox/simeth 30ml oral suspension PO PRN (14:25)
[2023-08-10] MEDS ORDERED: ondansetron/PF 4mg/2ml inj IV PRN (14:25)
[2023-08-10] MEDS ORDERED: magnesium Cl slow-release 64mg tablet PO PRN (14:25)
[2023-08-10] MEDS ORDERED: potassium Cl 40MEQ/1/2NS 520ml 520 ML IV PRN (14:25)
[2023-08-10] MEDS: normal saline 1000ml 1,000 ML IV SCH (14:25)
[2023-08-10] MEDS ORDERED: magnesium 4gm in 100ml NS 100 ML IV PRN (14:25)
[2023-08-10] MEDS ORDERED: MORP10CA8 PO (14:30)
[2023-08-10] MEDS ORDERED: TRAZ-251 PO (14:30)
[2023-08-10] MEDS ORDERED: HYDR4TAB45 PO ×2 (14:30)
[2023-08-10] MEDS ORDERED: APIX5TAB3 PO (14:31)
[2023-08-10] MEDS ORDERED: FURO40TA4 PO (14:31)
[2023-08-10] MEDS ORDERED: GABA-535 PO (14:31)
--- NOTE | 2023-08-10 15:14 | NUR ---
PT PLACED ON HOSPITAL BED
[2023-08-10] MEDS ORDERED: albuterol 2.5 MG/3 ML nebule NEB PRN (15:40)
[2023-08-10] MEDS: K and/or MAG REPLACEMENT MC SCH (19:14)
[2023-08-10] MEDS: MORPHINE SULFATE 10 MG PO SCH (20:00)
[2023-08-10] MEDS: apixaban 5mg tablet PO SCH (20:56)
[2023-08-10] MEDS: docusate sod 100mg capsule PO SCH (20:56)
[2023-08-10] MEDS: HYDROmorphone 2mg tablet PO SCH (20:56)
[2023-08-10] MEDS: traZODone 50mg tablet PO SCH (20:57)
[2023-08-10] MEDS: gabapentin 400mg capsule PO SCH (21:00)
[2023-08-10] MEDS ORDERED: morphine 4 MG/ML inj SYRINge IV PRN (21:20)
[2023-08-10] MEDS: morphine 2 MG/ML inj. syringe IV PRN (22:27)
[2023-08-11] MEDS: morphine 2 MG/ML inj. syringe IV PRN ×5 (01:14→21:12)
--- NOTE | 2023-08-11 01:27 | NUR ---
GAVE PT JUICE AND A SANDWICH FOR R/T HUNGRY COMPLAINT; PT HAS REGULAR DIET, NPO CANCELLED
[2023-08-11 07:45] LABS: BASOPHILS % (AUTO) 0.7 % (0-1); EOSINOPHILS # (AUTO) 0.1 X10'3 (0-0.9); EOSINOPHILS % (AUTO) 0.8 % (0-6); HEMATOCRIT 36.3 % (35.0-45.0); HEMOGLOBIN 11.9 g/dl (12.0-16.0); LYMPHOCYTES # (AUTO) 1.3 X10'3 (1.1-4.8); LYMPHOCYTES % (AUTO) 20.1 % (21-51); MEAN CORPUSCULAR HEMOGLOBIN 33.9 PG (27.0-31.0); MEAN CORPUSCULAR HGB CONC 32.8 g/dL (33.0-36.5); MEAN CORPUSCULAR VOLUME 103.4 FL (78-98); MONOCYTES # (AUTO) 0.7 X10'3 (0-0.9); MONOCYTES % (AUTO) 10.7 % (2-12); NEUTROPHILS # (AUTO) 4.3 X10'3 (1.8-7.7); NEUTROPHILS % (AUTO) 67.7 % (42-75); PLATELET COUNT 350 X10'3 (140-440); RED BLOOD COUNT 3.51 X10'6 (4.20-5.60); RED CELL DISTRIBUTION WIDTH 14.7 % (11.5-14.5); WHITE BLOOD COUNT 6.4 X10'3 (4.5-11.0)
[2023-08-11 07:52] LABS: ALBUMIN 2.1 G/DL (3.4-5.0); ANION GAP 5 (8-16); BLOOD UREA NITROGEN 14 MG/DL (7-18); BUN/CREATININE RATIO 25.9 (10.0-20.0); CALCIUM 8.2 MG/DL (8.5-10.1); CHLORIDE 106 MMOL/L (99-107); CREATININE 0.54 MG/DL (0.40-0.90); GLUCOSE 114 MG/DL (70-104); POTASSIUM 4.5 MMOL/L (3.5-5.1); SODIUM 137 MMOL/L (135-145); TOTAL CARBON DIOXIDE 26.5 MMOL/L (24-32); eCRCL 80 ML/MIN; eGFR > 90 ML/MIN
[2023-08-11] MEDS: K and/or MAG REPLACEMENT MC SCH (08:00)
[2023-08-11] MEDS: MORPHINE SULFATE 10 MG PO SCH (08:00)
[2023-08-11] MEDS: docusate sod 100mg capsule PO SCH (08:12)
[2023-08-11] MEDS: apixaban 5mg tablet PO SCH ×2 (08:12→21:03)
[2023-08-11] MEDS: cholecalciferol (vitamin D3) 1,000 unit (25mcg) tablet PO SCH (08:12)
[2023-08-11] MEDS: HYDROmorphone 2mg tablet PO SCH (08:13)
[2023-08-11] MEDS: calcium carbonate 500mg tablet PO SCH (08:24)
[2023-08-11] MEDS: gabapentin 400mg capsule PO SCH ×3 (08:24→21:02)
[2023-08-11 08:41] LABS: HEMOGLOBIN A1C 5.4 % (4.5-6.2)
[2023-08-11] MEDS: normal saline 1000ml 1,000 ML IV SCH (10:25)
--- NOTE | 2023-08-11 11:07 | NUR ---
Pt does not have anybody able to bring in home meds. Pharmacy does not carry her home dose of ER Morphine. MD Guerrero paged regarding new order.
[2023-08-11] MEDS: morphine ER 15mg tablet PO SCH ×2 (14:00→21:02)
[2023-08-11] MEDS ORDERED: HYDROmorphone 2mg tablet PO SCH (15:00)
--- NOTE | 2023-08-11 18:24 | NUR ---
Oral report recieved from Jael
--- NOTE | 2023-08-11 19:20 | NUR ---
pt is a&o x4, pt in room eating. VSS. Pt connected to IV fluids
[2023-08-11] MEDS: traZODone 50mg tablet PO SCH (21:03)
[2023-08-12] MEDS: K and/or MAG REPLACEMENT MC SCH ×2 (01:53→08:00)
[2023-08-12] MEDS: morphine 2 MG/ML inj. syringe IV PRN ×2 (01:57→06:31)
[2023-08-12 01:58] VITALS: BP 140/70; PULSE 76; RESP 15; TEMP 98.1; O2SAT 95
[2023-08-12 02:29] VITALS: RESP 15; O2SAT 95
[2023-08-12] MEDS: normal saline 1000ml 1,000 ML IV SCH (05:25)
--- NOTE | 2023-08-12 06:30 | NUR ---
Patient in room PCU 3016. I have received report from Clark TEJADA and had the opportunity to ask questions and assume patient care.
[2023-08-12 07:00] VITALS: BP 157/70; PULSE 74; RESP 13; TEMP 98; O2SAT 95
[2023-08-12 07:27] LABS: BASOPHILS # (AUTO) 0.1 X10'3 (0-0.2); BASOPHILS % (AUTO) 1.1 % (0-1); EOSINOPHILS # (AUTO) 0.1 X10'3 (0-0.9); EOSINOPHILS % (AUTO) 1.1 % (0-6); HEMATOCRIT 38.4 % (35.0-45.0); HEMOGLOBIN 12.5 g/dl (12.0-16.0); LYMPHOCYTES # (AUTO) 1.4 X10'3 (1.1-4.8); LYMPHOCYTES % (AUTO) 25.5 % (21-51); MEAN CORPUSCULAR HEMOGLOBIN 33.7 PG (27.0-31.0); MEAN CORPUSCULAR HGB CONC 32.7 g/dL (33.0-36.5); MEAN CORPUSCULAR VOLUME 103.1 FL (78-98); MONOCYTES # (AUTO) 0.5 X10'3 (0-0.9); MONOCYTES % (AUTO) 8.5 % (2-12); NEUTROPHILS # (AUTO) 3.4 X10'3 (1.8-7.7); NEUTROPHILS % (AUTO) 63.8 % (42-75); PLATELET COUNT 355 X10'3 (140-440); RED BLOOD COUNT 3.73 X10'6 (4.20-5.60); RED CELL DISTRIBUTION WIDTH 15.3 % (11.5-14.5); WHITE BLOOD COUNT 5.4 X10'3 (4.5-11.0)
[2023-08-12 07:30] VITALS: RESP 18
[2023-08-12 07:33] LABS: ALBUMIN 2.2 G/DL (3.4-5.0); ANION GAP 3 (8-16); BLOOD UREA NITROGEN 14 MG/DL (7-18); CALCIUM 8.3 MG/DL (8.5-10.1); CHLORIDE 104 MMOL/L (99-107); CREATININE 0.61 MG/DL (0.40-0.90); GLUCOSE 100 MG/DL (70-104); MAGNESIUM 2.2 MG/DL (1.5-2.4); POTASSIUM 5.2 MMOL/L (3.5-5.1); SODIUM 134 MMOL/L (135-145); TOTAL CARBON DIOXIDE 26.9 MMOL/L (24-32); eCRCL 71 ML/MIN; eGFR > 90 ML/MIN
[2023-08-12] MEDS: apixaban 5mg tablet PO SCH (08:41)
[2023-08-12] MEDS: calcium carbonate 500mg tablet PO SCH (08:41)
[2023-08-12] MEDS: cholecalciferol (vitamin D3) 1,000 unit (25mcg) tablet PO SCH (08:41)
[2023-08-12] MEDS: gabapentin 400mg capsule PO SCH (08:41)
[2023-08-12] MEDS: morphine ER 15mg tablet PO SCH (08:41)
[2023-08-12] MEDS ORDERED: CHOL100046 PO (10:37)
[2023-08-12] MEDS ORDERED: CALC-729 PO (10:37)
--- NOTE | 2023-08-12 12:18 | NUR ---
DAY Medication Administration: For this medication-pass time frame, all medication were reviewed, dispensed, administered and documented per hospital policy by DAY OSUNA.
--- NOTE | 2023-08-12 12:18 | NUR ---
FACILITIES ADMINISTRATOR documentation: I have reviewed and agree with all interventions, assessments performed and documented by DAY OSUNA.
--- NOTE | 2023-08-12 12:35 | NUR ---
Patient discharged home with all belongings and discharge instructions. IV removed and tele monitor removed and returned to television news video editor. Escorted out via wheel chair and left in private vehicle.
== END 2023-08-12 12:33 | disposition home or self-care (01) | DRG 535 ==
LOC: ER 11:43 → ED HOLD 14:29 → PCU 3S 08-12 01:52
PROVIDERS: ADMIT Family Medicine; ATTEND Family Medicine
DX: S32.591A Other specified fracture of right pubis, initial encounter for closed fracture (principal); E43 Unspecified severe protein-calorie malnutrition; S32.19XA Other fracture of sacrum, initial encounter for closed fracture; E87.1 Hypo-osmolality and hyponatremia; Z68.1 Body mass index [BMI] 19.9 or less, adult; M85.88 Other specified disorders of bone density and structure, other site; F17.210 Nicotine dependence, cigarettes, uncomplicated; G89.4 Chronic pain syndrome; J44.9 Chronic obstructive pulmonary disease, unspecified; K21.9 Gastro-esophageal reflux disease without esophagitis; M19.90 Unspecified osteoarthritis, unspecified site; Z96.641 Presence of right artificial hip joint; F32.A Depression, unspecified; D53.9 Nutritional anemia, unspecified; G62.9 Polyneuropathy, unspecified; R29.6 Repeated falls; Z86.711 Personal history of pulmonary embolism; W18.39XA Other fall on same level, initial encounter; Y93.89 Activity, other specified; Y92.89 Other specified places as the place of occurrence of the external cause; Y99.8 Other external cause status; Z86.718 Personal history of other venous thrombosis and embolism; Z90.710 Acquired absence of both cervix and uterus; Z98.891 History of uterine scar from previous surgery; Z90.49 Acquired absence of other specified parts of digestive tract; Z98.84 Bariatric surgery status; Z79.891 Long term (current) use of opiate analgesic; Z98.1 Arthrodesis status; Z88.6 Allergy status to analgesic agent; Z88.5 Allergy status to narcotic agent; Z88.8 Allergy status to other drugs, medicaments and biological substances; Z79.899 Other long term (current) drug therapy; Z86.73 Personal history of transient ischemic attack (TIA), and cerebral infarction without residual deficits; Z87.01 Personal history of pneumonia (recurrent); Z81.1 Family history of alcohol abuse and dependence; Z71.6 Tobacco abuse counseling
CPT/HCPCS: 36415; 71045; 72192; 73502; 80048; 80053; 81001; 83036; 83735; 85025; 85610; 85730; 86885; 86900; 86901; 87081; 96374; 99285; A4314; A4338; A4615; A6213; A6258; G0378; J2270; J2274; J7030; J7120

== ENCOUNTER 2023-08-14 10:51 | Emergency (ER) | payer MEDICARE, BC ==
[~2023-08-14] VITALS: Ht 172.7 cm; Wt 52.3 kg
[~2023-08-14 10:51] MED LIST changes: +CALC-729 PO; +CHOL100046 PO; -ESCI20TA36 PO; +FURO40TA4 PO; +HYDR4TAB45 PO; -HYDR4TAB55 PO; -MULT-1219 PO; -POLY17PO10 PO
[2023-08-14 12:24] VITALS: TEMP 98.8
[2023-08-14 13:05] LABS: BASOPHILS # (AUTO) 0.1 X10'3 (0-0.2); EOSINOPHILS # (AUTO) 0.1 X10'3 (0-0.9); HEMOGLOBIN 11.1 g/dl (12.0-16.0); LYMPHOCYTES # (AUTO) 1.5 X10'3 (1.1-4.8); MEAN PLATELET VOLUME 7.7 FL (7.4-10.4); NEUTROPHILS # (AUTO) 3.9 X10'3 (1.8-7.7); RED CELL DISTRIBUTION WIDTH 15.3 % (11.5-14.5); WHITE BLOOD COUNT 6.3 X10'3 (4.5-11.0)
[2023-08-14 13:06] LABS: APTT 34 SECONDS (22-32); PROTHROMBIN TIME 10.3 SECONDS (9.0-12.0)
[2023-08-14 13:07] LABS: HEMATOCRIT 33.7 % (35.0-45.0); MEAN CORPUSCULAR HEMOGLOBIN 33.9 PG (27.0-31.0); MEAN CORPUSCULAR HGB CONC 32.9 g/dL (33.0-36.5); MONOCYTES # (AUTO) 0.7 X10'3 (0-0.9); MONOCYTES % (AUTO) 11.6 % (2-12); NEUTROPHILS % (AUTO) 61.4 % (42-75); PLATELET COUNT 352 X10'3 (140-440); RED BLOOD COUNT 3.28 X10'6 (4.20-5.60)
[2023-08-14 13:08] LABS: ALANINE AMINOTRANSFERASE 25 U/L (12-78); ALBUMIN 2.5 G/DL (3.4-5.0); ALBUMIN/GLOBULIN RATIO 0.7 (1.1-1.5); ALKALINE PHOSPHATASE 206 IU/L (46-116); ANION GAP 4 (8-16); ASPARTATE AMINO TRANSFERASE 21 U/L (10-37); BILIRUBIN,TOTAL 0.2 MG/DL (0.1-1.0); BLOOD UREA NITROGEN 21 MG/DL (7-18); BUN/CREATININE RATIO 37.5 (10.0-20.0); CHLORIDE 105 MMOL/L (99-107); CREATININE 0.56 MG/DL (0.40-0.90); GLUCOSE 126 MG/DL (70-104); POTASSIUM 4.3 MMOL/L (3.5-5.1); SODIUM 137 MMOL/L (135-145); TOTAL CARBON DIOXIDE 27.6 MMOL/L (24-32); TOTAL PROTEIN 6.2 G/DL (6.4-8.2); eCRCL 80 ML/MIN; eGFR > 90 ML/MIN
[2023-08-14 13:13] LABS: CALCIUM 8.4 MG/DL (8.5-10.1)
[2023-08-14] MEDS ORDERED: morphine 4 MG/ML inj SYRINge IV ONE ×2 (14:00→14:15)
[2023-08-14 14:33] VITALS: BP 137/71; PULSE 64; RESP 14; O2SAT 98
[2023-08-14 14:35] LABS: BURR CELLS 1+; PLATELET ESTIMATE NORMAL; SCHISTOCYTES FEW; TARGET CELLS 1+
[2023-08-14] MEDS ORDERED: TETanus/Pertussis (Acell)/Diphther VAC/PF (Tdap-Adult) 0.5ml syringe IMVAC ONE (15:40)
== END 2023-08-14 17:01 | disposition home or self-care (01) ==
LOC: ER 10:52
DX: S32.501D Unspecified fracture of right pubis, subsequent encounter for fracture with routine healing (principal); S81.811D Laceration without foreign body, right lower leg, subsequent encounter; S09.90XA Unspecified injury of head, initial encounter; J44.9 Chronic obstructive pulmonary disease, unspecified; K21.9 Gastro-esophageal reflux disease without esophagitis; F12.90 Cannabis use, unspecified, uncomplicated; R79.1 Abnormal coagulation profile; Z88.6 Allergy status to analgesic agent; Z88.8 Allergy status to other drugs, medicaments and biological substances; Z88.5 Allergy status to narcotic agent; Z79.899 Other long term (current) drug therapy; Z90.49 Acquired absence of other specified parts of digestive tract; Z98.890 Other specified postprocedural states; Z90.710 Acquired absence of both cervix and uterus; W19.XXXD Unspecified fall, subsequent encounter
CPT/HCPCS: 12001; 36415; 70450; 72192; 73700; 80053; 85008; 85025; 85610; 85730; 90471; 90715; 96374; 99285; J2270; A6449

== ENCOUNTER 2024-02-12 21:27 | Inpatient (IN) | payer MEDICARE, BC ==
[~2024-02-12] VITALS: Ht 167.6 cm; Wt 59.1 kg
[2024-02-12 22:21] LABS: BASOPHILS % (AUTO) 0.5 % (0-1); EOSINOPHILS % (AUTO) 0 % (0-6); HEMATOCRIT 40.7 % (35.0-45.0); HEMOGLOBIN 13.3 g/dl (12.0-16.0); LYMPHOCYTES % (AUTO) 10.6 % (21-51); MEAN CORPUSCULAR HEMOGLOBIN 32.7 PG (27.0-31.0); MEAN CORPUSCULAR HGB CONC 32.7 g/dL (33.0-36.5); MEAN CORPUSCULAR VOLUME 100.2 FL (78-98); MEAN PLATELET VOLUME 7.7 FL (7.4-10.4); MONOCYTES # (AUTO) 0.6 X10'3 (0-0.9); NEUTROPHILS # (AUTO) 7.9 X10'3 (1.8-7.7); NEUTROPHILS % (AUTO) 82.9 % (42-75); PLATELET COUNT 280 X10'3 (140-440); RED BLOOD COUNT 4.06 X10'6 (4.20-5.60); WHITE BLOOD COUNT 9.5 X10'3 (4.5-11.0)
[2024-02-12 22:36] LABS: ANION GAP 12 (8-16); BLOOD UREA NITROGEN 7 MG/DL (7-18); BUN/CREATININE RATIO 16.3 (10.0-20.0); CALCIUM 7.8 MG/DL (8.5-10.1); CHLORIDE 104 MMOL/L (99-107); CREATININE 0.43 MG/DL (0.40-0.90); GLUCOSE 81 MG/DL (70-104); MAGNESIUM 1.8 MG/DL (1.5-2.4); POTASSIUM 3.7 MMOL/L (3.5-5.1); PRO BRAIN NATRIURETIC PEPTIDE 11243 PG/ML (0-125); SODIUM 135 MMOL/L (135-145); TOTAL CARBON DIOXIDE 19.3 MMOL/L (24-32); eCRCL 118 ML/MIN; eGFR > 90 ML/MIN
[2024-02-12] MEDS: HYDROmorphone 1 mg/ml syringe IV ONE (22:40)
[2024-02-12] MEDS: dextrose 5%-water 1,000 ML IV SCH (22:46)
[2024-02-12] MEDS ORDERED: normal saline 1000ml 1,000 ML IV SCH (23:05)
[2024-02-12] MEDS ORDERED: mag hydrox/Alum hydrox/simeth 30ml oral suspension PO PRN (23:05)
[2024-02-12] MEDS ORDERED: magnesium 4gm in 100ml NS 100 ML IV PRN (23:05)
[2024-02-12] MEDS ORDERED: potassium Cl 40MEQ/1/2NS 520ml 520 ML IV PRN (23:05)
[2024-02-12] MEDS ORDERED: acetaminophen 325mg tablet PO PRN (23:05)
[2024-02-12] MEDS ORDERED: magnesium 2GM in 50ml NS 50 ML IV PRN (23:05)
[2024-02-12] MEDS ORDERED: potassium Cl 20 mEq SR tablet PO PRN ×2 (23:05)
[2024-02-12] MEDS ORDERED: magnesium Cl slow-release 64mg tablet PO PRN (23:05)
[2024-02-12] MEDS ORDERED: ondansetron/PF 4mg/2ml inj IV PRN (23:05)
[2024-02-12] MEDS ORDERED: metoprolol tartrate 1mg/ml inj IV PRN (23:40)
[2024-02-12] MEDS ORDERED: nitroGLYCERIN 0.4mg SUBLingual tab SL PRN (23:40)
[2024-02-12] MEDS: morphine 4 MG/ML inj SYRINge IV ONE (23:46)
[2024-02-13] VITALS (21 sets, daily range): BP systolic 83–152; BP diastolic 43–101; PULSE 68–99; RESP 12–21; TEMP 97.3–97.9; O2SAT 92–99
[2024-02-13] MEDS: PERFLUTREN PROTEIN-A MICROSPHR (Optison) 0.22 MG/ML 3ML VIAL IV ONE (00:15)
[2024-02-13] MEDS ORDERED: ipratropium/albuterol 3ml nebule NEB PRN (00:45)
[2024-02-13] MEDS: morphine ER 15mg tablet PO SCH (00:57)
[2024-02-13] MEDS: folic acid 1mg tablet PO ONE (00:57)
[2024-02-13 06:49] LABS: ANISOCYTOSIS 3+; PLATELET ESTIMATE NORMAL
[2024-02-13 07:23] LABS: BASOPHILS % (AUTO) 0.2 % (0-1); EOSINOPHILS % (AUTO) 0.1 % (0-6); HEMATOCRIT 44.6 % (35.0-45.0); HEMOGLOBIN 14.5 g/dl (12.0-16.0); LYMPHOCYTES % (AUTO) 11.9 % (21-51); MEAN CORPUSCULAR HEMOGLOBIN 33.3 PG (27.0-31.0); MEAN CORPUSCULAR HGB CONC 32.6 g/dL (33.0-36.5); MEAN CORPUSCULAR VOLUME 102.2 FL (78-98); MONOCYTES # (AUTO) 0.7 X10'3 (0-0.9); NEUTROPHILS # (AUTO) 6.6 X10'3 (1.8-7.7); NEUTROPHILS % (AUTO) 78.8 % (42-75); PLATELET COUNT 248 X10'3 (140-440); RED BLOOD COUNT 4.36 X10'6 (4.20-5.60); RED CELL DISTRIBUTION WIDTH 21.3 % (11.5-14.5); WHITE BLOOD COUNT 8.3 X10'3 (4.5-11.0)
[2024-02-13 07:57] LABS: ALANINE AMINOTRANSFERASE 23 U/L (12-78); ALBUMIN 1.8 G/DL (3.4-5.0); ALBUMIN/GLOBULIN RATIO 0.5 (1.1-1.5); ALKALINE PHOSPHATASE 171 IU/L (46-116); ANION GAP 10 (8-16); BILIRUBIN,TOTAL 0.5 MG/DL (0.1-1.0); BLOOD UREA NITROGEN 9 MG/DL (7-18); BUN/CREATININE RATIO 17.3 (10.0-20.0); CALCIUM 7.9 MG/DL (8.5-10.1); CHLORIDE 104 MMOL/L (99-107); CHOLESTEROL 112 MG/DL (0-200); CREATININE 0.52 MG/DL (0.40-0.90); GLUCOSE 110 MG/DL (70-104); HDL CHOLESTEROL 56 MG/DL (35-60); LDL CHOLESTEROL 42 MG/DL (50-100); MAGNESIUM 1.9 MG/DL (1.5-2.4); SODIUM 134 MMOL/L (135-145); TOTAL CARBON DIOXIDE 20.5 MMOL/L (24-32); TOTAL PROTEIN 5.8 G/DL (6.4-8.2); TRIGLYCERIDES 99 MG/DL (20-135); eCRCL 98 ML/MIN; eGFR > 90 ML/MIN
[2024-02-13] MEDS: K and/or MAG REPLACEMENT MC SCH (08:00)
[2024-02-13 08:02] LABS: ASPARTATE AMINO TRANSFERASE 41 U/L (10-37); PHOSPHORUS 2.6 MG/DL (2.3-4.5); POTASSIUM 3.8 MMOL/L (3.5-5.1)
[2024-02-13] MEDS: gabapentin 400mg capsule PO SCH (10:11)
[2024-02-13] MEDS: pantoprazole 40mg Tablet.DR PO SCH (10:11)
[2024-02-13] MEDS: docusate sod 100mg capsule PO SCH (10:12)
[2024-02-13] MEDS: apixaban 5mg tablet PO SCH (10:12)
[2024-02-13] MEDS: multivitamins, therapeutics tablet PO SCH (10:13)
[2024-02-13] MEDS: thiamine 100mg tablet PO SCH (10:13)
[2024-02-13] MEDS: HYDROmorphone 2mg tablet PO SCH (10:17)
[2024-02-13] MEDS: regadenoson 0.4mg/5ml syringe IV PRN (14:17)
[2024-02-13] MEDS: aminophylline 250mg/10ml inj. IV PRN (14:29)
[2024-02-13] MEDS: traZODone 150mg tablet PO SCH (20:08)
[2024-02-14] VITALS (10 sets, daily range): BP systolic 102–122; BP diastolic 50–76; PULSE 83–116; RESP 11–22; TEMP 97.9–100.2; O2SAT 90–93
[2024-02-14 08:55] LABS: BASOPHILS % (AUTO) 0.2 % (0-1); EOSINOPHILS % (AUTO) 0 % (0-6); HEMATOCRIT 38.4 % (35.0-45.0); HEMOGLOBIN 12.5 g/dl (12.0-16.0); LYMPHOCYTES # (AUTO) 1.8 X10'3 (1.1-4.8); LYMPHOCYTES % (AUTO) 24.1 % (21-51); MEAN CORPUSCULAR HEMOGLOBIN 32.8 PG (27.0-31.0); MEAN CORPUSCULAR HGB CONC 32.5 g/dL (33.0-36.5); MEAN CORPUSCULAR VOLUME 100.7 FL (78-98); MEAN PLATELET VOLUME 8.1 FL (7.4-10.4); MONOCYTES # (AUTO) 0.5 X10'3 (0-0.9); MONOCYTES % (AUTO) 7.6 % (2-12); NEUTROPHILS # (AUTO) 4.9 X10'3 (1.8-7.7); NEUTROPHILS % (AUTO) 68.1 % (42-75); PLATELET COUNT 274 X10'3 (140-440); RED BLOOD COUNT 3.81 X10'6 (4.20-5.60); RED CELL DISTRIBUTION WIDTH 21.2 % (11.5-14.5); WHITE BLOOD COUNT 7.3 X10'3 (4.5-11.0)
[2024-02-14 09:30] LABS: ALANINE AMINOTRANSFERASE 20 U/L (12-78); ALBUMIN 1.8 G/DL (3.4-5.0); ALBUMIN/GLOBULIN RATIO 0.5 (1.1-1.5); ALKALINE PHOSPHATASE 148 IU/L (46-116); ANION GAP 4 (8-16); ASPARTATE AMINO TRANSFERASE 33 U/L (10-37); BILIRUBIN,TOTAL 0.3 MG/DL (0.1-1.0); BLOOD UREA NITROGEN 11 MG/DL (7-18); BUN/CREATININE RATIO 17.7 (10.0-20.0); CALCIUM 7.8 MG/DL (8.5-10.1); CHLORIDE 103 MMOL/L (99-107); CREATININE 0.62 MG/DL (0.40-0.90); GLUCOSE 82 MG/DL (70-104); MAGNESIUM 1.7 MG/DL (1.5-2.4); SODIUM 135 MMOL/L (135-145); TOTAL CARBON DIOXIDE 27.9 MMOL/L (24-32); TOTAL PROTEIN 5.6 G/DL (6.4-8.2); eCRCL 82 ML/MIN; eGFR > 90 ML/MIN
[2024-02-14 09:32] LABS: POTASSIUM 4.2 MMOL/L (3.5-5.1)
[2024-02-14 10:25] LABS: ANISOCYTOSIS 3+; PLATELET ESTIMATE NORMAL; SMUDGE CELLS 2+; TOTAL CELLS COUNTED 100
[2024-02-14 10:26] LABS: BURR CELLS 1+; ELLIPTOCYTES FEW; TARGET CELLS FEW
[2024-02-14] MEDS: atorvastatin 20mg tablet PO SCH (12:11)
[2024-02-14] MEDS ORDERED: acetaminophen 325mg tablet PO PRN (18:25)
[2024-02-14] MEDS: metoprolol tartrate 25mg tablet PO SCH (19:30)
[2024-02-14] MEDS: CefTRIAXone/D5W-Rocephin 1gm 50 ML IV SCH (20:06)
[2024-02-14] MEDS: dextrose 5%-water 1,000 ML IV SCH (20:52)
[2024-02-15] VITALS (9 sets, daily range): BP systolic 97–131; BP diastolic 52–72; PULSE 59–76; RESP 13–22; TEMP 97.7–99.1; O2SAT 94–98
[2024-02-15 04:00] LABS: BILIRUBIN,URINE NEGATIVE (Neg); CLARITY,URINE CLEAR (Clear); COLOR,URINE YELLOW (Yellow); GLUCOSE, URINE NEGATIVE (Neg); KETONES,URINE NEGATIVE (Neg); LEUKOCYTE ESTERASE ,URINE MODERATE (Neg); NITRITES, URINE NEGATIVE (Neg); OCCULT BLOOD,URINE NEGATIVE (Neg); PROTEIN,URINE NEGATIVE (Neg); UROBILINOGEN,URINE 0.2 E.U/dL (0.2-1.0)
[2024-02-15 04:04] LABS: UA COLLECTION TYPE CLN CATCH MIDSTREAM
[2024-02-15 04:05] LABS: MUCUS STRANDS NONE SEEN /LPF (Neg); SQUAMOUS EPITHELIAL CELL,UR FEW /LPF (FEW); TRANSITIONAL EPI CELLS,URINE FEW /HPF
[2024-02-15 04:06] LABS: BACTERIA,URINE 1+ /HPF (Neg); RBC,URINE 0-2 /HPF (0-2)
[2024-02-15] MEDS: magnesium hydroxide 30ml (MOM) UD suspension PO PRN (08:11)
[2024-02-15 13:31] LABS: ALANINE AMINOTRANSFERASE 21 U/L (12-78); ALBUMIN 1.7 G/DL (3.4-5.0); ALBUMIN/GLOBULIN RATIO 0.5 (1.1-1.5); ALKALINE PHOSPHATASE 138 IU/L (46-116); ANION GAP 10 (8-16); ASPARTATE AMINO TRANSFERASE 36 U/L (10-37); BILIRUBIN,TOTAL 0.3 MG/DL (0.1-1.0); BLOOD UREA NITROGEN 10 MG/DL (7-18); BUN/CREATININE RATIO 19.6 (10.0-20.0); CALCIUM 7.6 MG/DL (8.5-10.1); CHLORIDE 100 MMOL/L (99-107); CREATININE 0.51 MG/DL (0.40-0.90); GLUCOSE 105 MG/DL (70-104); MAGNESIUM 1.7 MG/DL (1.5-2.4); PHOSPHORUS 2.8 MG/DL (2.3-4.5); POTASSIUM 4.7 MMOL/L (3.5-5.1); SODIUM 135 MMOL/L (135-145); TOTAL CARBON DIOXIDE 24.8 MMOL/L (24-32); TOTAL PROTEIN 5.3 G/DL (6.4-8.2); eCRCL 100 ML/MIN; eGFR > 90 ML/MIN
[2024-02-15] MEDS: HYDROcodone/acetaminophen 5mg/325mg tablet PO PRN (16:53)
[2024-02-16 02:00] VITALS: BP 102/51; PULSE 58; RESP 16; TEMP 98.2; O2SAT 94
[2024-02-16 07:00] VITALS: BP 106/55; PULSE 62; RESP 13; TEMP 98.1; O2SAT 99
[2024-02-16 08:00] VITALS: RESP 13; O2SAT 99
[2024-02-16 08:26] VITALS: PULSE 57; RESP 16; O2SAT 96
[2024-02-16 09:09] LABS: HEMOGLOBIN 11.6 g/dl (12.0-16.0); NEUTROPHILS # (AUTO) 3.3 X10'3 (1.8-7.7)
[2024-02-16 09:11] LABS: BASOPHILS % (AUTO) 0.4 % (0-1); EOSINOPHILS % (AUTO) 0 % (0-6); HEMATOCRIT 35.6 % (35.0-45.0); LYMPHOCYTES # (AUTO) 0.9 X10'3 (1.1-4.8); MEAN CORPUSCULAR HEMOGLOBIN 32.5 PG (27.0-31.0); MEAN CORPUSCULAR HGB CONC 32.7 g/dL (33.0-36.5); MEAN CORPUSCULAR VOLUME 99.6 FL (78-98); MEAN PLATELET VOLUME 8.9 FL (7.4-10.4); MONOCYTES # (AUTO) 0.7 X10'3 (0-0.9); MONOCYTES % (AUTO) 13.6 % (2-12); PLATELET COUNT 233 X10'3 (140-440); RED BLOOD COUNT 3.57 X10'6 (4.20-5.60); RED CELL DISTRIBUTION WIDTH 20.5 % (11.5-14.5); WHITE BLOOD COUNT 4.8 X10'3 (4.5-11.0)
[2024-02-16 09:22] LABS: ALANINE AMINOTRANSFERASE 19 U/L (12-78); ALBUMIN 1.6 G/DL (3.4-5.0); ALBUMIN/GLOBULIN RATIO 0.4 (1.1-1.5); ALKALINE PHOSPHATASE 125 IU/L (46-116); ANION GAP 5 (8-16); ASPARTATE AMINO TRANSFERASE 33 U/L (10-37); BILIRUBIN,TOTAL 0.2 MG/DL (0.1-1.0); BLOOD UREA NITROGEN 13 MG/DL (7-18); BUN/CREATININE RATIO 26.5 (10.0-20.0); CALCIUM 7.4 MG/DL (8.5-10.1); CHLORIDE 97 MMOL/L (99-107); CREATININE 0.49 MG/DL (0.40-0.90); POTASSIUM 4.2 MMOL/L (3.5-5.1); SODIUM 127 MMOL/L (135-145); TOTAL CARBON DIOXIDE 24.8 MMOL/L (24-32); TOTAL PROTEIN 5.3 G/DL (6.4-8.2); eCRCL 104 ML/MIN; eGFR > 90 ML/MIN
[2024-02-16 09:36] LABS: GLUCOSE 126 MG/DL (70-104)
[2024-02-16 10:12] LABS: ANISOCYTOSIS 3+; PLATELET ESTIMATE NORMAL
[2024-02-16 10:13] LABS: BURR CELLS FEW; SCHISTOCYTES FEW; TARGET CELLS FEW
[2024-02-16 11:19] VITALS: BP 90/49; PULSE 63; RESP 18; TEMP 98.1; O2SAT 95
== END 2024-02-16 12:04 | DRG 281 ==
LOC: ER 21:28 → UNDOADMIN 23:07 → ED HOLD 23:07 → UNDOADMIN 02-13 00:05 → ED HOLD 02-13 00:06 → PCU 3S 02-13 04:52
PROVIDERS: ADMIT Internal Medicine; ATTEND Internal Medicine
PROC: 4A02XM4 Measurement of Cardiac Total Activity, External Approach (ICD-10-PCS; principal; 2024-02-13)
PROC: 3E073KZ Introduction of Other Diagnostic Substance into Coronary Artery, Percutaneous Approach (ICD-10-PCS; 2024-02-13)
DX: I21.4 Non-ST elevation (NSTEMI) myocardial infarction (principal); E44.1 Mild protein-calorie malnutrition; F33.9 Major depressive disorder, recurrent, unspecified; I50.32 Chronic diastolic (congestive) heart failure; G62.9 Polyneuropathy, unspecified; G89.4 Chronic pain syndrome; F17.210 Nicotine dependence, cigarettes, uncomplicated; Z20.822 Contact with and (suspected) exposure to COVID-19; F41.9 Anxiety disorder, unspecified; I11.0 Hypertensive heart disease with heart failure; F12.90 Cannabis use, unspecified, uncomplicated; R29.6 Repeated falls; K21.9 Gastro-esophageal reflux disease without esophagitis; I35.0 Nonrheumatic aortic (valve) stenosis; I25.10 Atherosclerotic heart disease of native coronary artery without angina pectoris; J44.9 Chronic obstructive pulmonary disease, unspecified; M54.9 Dorsalgia, unspecified; Z88.6 Allergy status to analgesic agent; Z88.5 Allergy status to narcotic agent; Z79.01 Long term (current) use of anticoagulants; Z88.8 Allergy status to other drugs, medicaments and biological substances; Z79.899 Other long term (current) drug therapy; Z86.718 Personal history of other venous thrombosis and embolism; Z86.711 Personal history of pulmonary embolism; Z90.710 Acquired absence of both cervix and uterus; Z98.84 Bariatric surgery status; Z98.891 History of uterine scar from previous surgery; Z90.49 Acquired absence of other specified parts of digestive tract; Z68.21 Body mass index [BMI] 21.0-21.9, adult
CPT/HCPCS: 36415; 71045; 71046; 78452; 80048; 80053; 80061; 81001; 82607; 82948; 83036; 83605; 83735; 83880; 84100; 84484; 85007; 85008; 85025; 87040; 87081; 87088; 87502; 87503; 87811; 93005; 93017; 93306; 94760; 97161; 97530; 99285; A4314; A6213; A6258; A6449; A9500; G0378; J0280; J0696; J2270; J2785; J7070